=== PATIENT | female | born 1965 | race Caucasian/White ===

== ENCOUNTER 2024-12-08 15:24 | Outpatient (CLI) | payer BC, SELFPAY ==
--- OUTSIDE RECORDS SUMMARY | 2024-12-08 15:28 | XMS_ITS ---
Author Organization [facility] Address [address] [place] [address] Care Team Providers Care Short Goods Drier Name Role Phone Kanika Gonzalez Primary Care Provider [phone] Migration, Provider Unavailable Unavailable REASON FOR VISIT Multum To Medispan Conversion Encounter Medications Medication SIG (Take, Route, Frequency, Duration) Notes Start Date End Date Status Vitamin E 50 MG/ML 1 ML ORALLY ONCE A DAY *Please review and pick correct strength-formulatio n from Medispan options. If intended option is not shown, discontinue and re-order from Quick Search* Active Pravastatin Sodium 40 MG 1 tab(s) orally once a day for 30 days 02/08/2024 Active Vitamin B-12 1000 MCG 1 tab(s) orally once a day Active metFORMIN HCl ER 500 MG TAKE 1 TABLET BY MOUTH EVERY DAY AT DINNER for 90 Days Active Encounters Encounter Location Date Provider Diagnosis [facility] [address] [place] [address] 04/16/2024 Provider Migration Plan Of Treatment No Information Progress Notes * VIVIAN MAHMOODRASHADB:1965 ( 59 yo F)Acc No.[id number]:04/16/2024 Patient: GENET ANDERSON Provider: Stephany hernández Migration :1965 A ge:58 Y S ex:Female Date:04/16/2024 Address:[address], [place] Pcp:Kanika Gonzalez Subjective: * Chief Complaints: * 1 . Multum To Medispan Conversion Encounter. * Medical History: * Medications: T aking Vitamin E 50 MG/ML SOLUTION 1 ML ORALLY ONCE A DAY , Notes to Pharmacist: *Please review and pick correct strength-formulation from Medispan options. If intended option is not shown, discontinue and re-order from Quick Search*, Taking Vitamin B-12 1000 MCG Tablet 1 tab(s) orally once a day , Taking Pravastatin Sodium 40 MG Tablet 1 tab(s) orally once a day , Taking metFORMIN HCl ER 500 MG Tablet Extended Release 24 Hour TAKE 1 TABLET BY MOUTH EVERY DAY AT DINNER Objective: * Vitals: Assessment: Plan: * Treatment: * Billing Information: * Visit Code: * Procedure Codes: * Electronic signature of Sanjiv martin Migration on 12/08/2024 at 03:27 PM CDT Sign off status: Pending * Provider: Stephany hernández Migration Date: 06/16/2023 Generated for Waylon nguyen/Aristides/Rambo on: 12/08/2024 03:27 PM CDT
--- OUTSIDE RECORDS SUMMARY | 2024-12-08 15:28 | XMS_ITS | Clinical Summary ---
Author Organization [facility] Address [address] [place] [address] Care Team Providers Care Environmental Emergencies Planner Name Role Phone Dian Soares MD Primary Care Provide r Te Rosales MD Unavailable [phone] Irina Garrett PT Unavailable Unavaila ble Allergies No known active allergies Medications metFORMIN (FORTAMET) 500 mg 24 hr tablet Take 1 tablet (500 mg total) by mouth daily after dinner Active pravastatin (PRAVACHOL) 40 mg tablet Take 1 tablet (40 mg total) by mouth daily after dinner Active cholecalciferol (VITAMIN D-3) 2000 unit capsule Take 1 capsule (2,000 Units total) by mouth daily Active cyanocobalamin (Vitamin B-12) 1,000 mcg tabletIndications: Prevention of Vitamin B12 Deficiency Take 1 tablet (1,000 mcg total) by mouth daily Active vitamin E 400 unit capsule Take 1 capsule (400 Units total) by mouth daily Active zinc sulfate (ZINCATE) 50 mg zinc (220 mg) capsule Take 1 capsule (220 mg total) by mouth daily Active cetirizine-pseudoe phedrine ER (ZyrTEC-D) 5-120 mg per 12 hr tablet Take 1 tablet by mouth 2 (two) times a day as needed for allergies Active albuterol HFA (PROVENTIL HFA,VENTOLIN HFA,PROAIR HFA) 90 mcg/actuation inhaler Inhale 2 puffs every 6 (six) hours as needed for wheezing Active triamcinolone (NASACORT) 55 mcg nasal inhaler Administer 2 sprays into each nostril daily as needed for rhinitis Active ondansetron ODT (ZOFRAN-ODT) 4 mg disintegrating tabletIndications: Nausea and Vomiting Take 1 tablet (4 mg total) by mouth every 6 (six) hours as needed for nausea or vomiting 20 tablet 4 Active Active Problems Problem Noted Date Diagnosed Date Class 2 obesity with body ma ss index (BMI) of 37.0 to 37.9 in adult 11/14/2023 Cellulitis of left lower leg 11/13/2023 Cellulitis 10/18/2023 Lymphedema due to chronic inflammation Transaminitis 10/18/2023 Allergic rhinitis 10/18/2023 Dyslipidemia 10/18/2023 Cellulitis of left lower extremity 08/05/2023 Encounters Date Type Department Care Team Description 12/06/2024 3:45 PM CDT Therapy [facility] at [address] [address] Irina Garrett, PT Lymphedema (Primary Dx) 11/10/2024 1:30 PM CDT Therapy [facility] at [address] [address] Irina Garrett, PT Lymphedema (Primary Dx) 11/03/2024 1:30 PM CDT Therapy [facility] at [address] [address] Irina Garrett, PT Lymphedema (Primary Dx) 11/01/2024 1:45 PM CDT Therapy [facility] at [address] [address] Irina Garrett, PT Lymphedema (Primary Dx) 10/28/2024 1:45 PM CDT Therapy [facility] at [address] [address] Irina Garrett, PT Lymphedema (Primary Dx) 10/25/2024 11:00 AM CDT Therapy [facility] at [address] [address] Irina Garrett, PT Lymphedema (Primary Dx) 10/21/2024 11:00 AM CDT Therapy [facility] at [address] [address] Irina Garrett, PT Lymphedema (Primary Dx) 10/21/2024 Plan of Care Documentation [facility] at [address] [address] 10/18/2024 12:00 PM CDT Therapy [facility] at [address] [address] Irina Garrett, PT Lymphedema (Primary Dx) 10/14/2024 11:00 AM CDT Therapy [facility] at [address] [address] Irina Garrett, PT Lymphedema (Primary Dx) 10/11/2024 12:00 PM CDT Therapy [facility] at [address] [address] Irina Garrett, PT Lymphedema (Primary Dx) 10/06/2024 3:30 PM CDT Therapy [facility] at [address] [address] Irina Garrett, PT Lymphedema (Primary Dx) 09/30/2024 10:30 AM CDT Therapy [facility] at [address] [address] Irina Garrett, PT Lymphedema (Primary Dx) 09/13/2024 2:30 PM CDT Therapy [facility] at [address] [address] Irina Garrett, PT Lymphedema (Primary Dx) from Last 3 Months Medical History Medical History Date Comments Allergic rhinitis HLD (hyperlipidemia) Chronic acquired lymphedema Social History Tobacco Use Types Packs/Day Years Used Date Smoking Tobacco: Never Smokeless Tobacco: Never Tobacco Cessation:Counseling Given: Not Answered [facility] Utilities Answer Date Recorded In the past 12 months has th e electric, gas, oil, or water company threatened to shut off services in your home? No 11/16/2023 Social Connection and Isolat ion Panel [NHANES] Answer Date Recorded In a typical week, how many times do you talk on the phone with family, friends, or neighbors? More than three times a week 11/16/2023 How often do you get togethe r with friends or relatives? More than three times a week 11/16/2023 How often do you attend chur ch or methodist services? Never 11/16/2023 Do you belong to any clubs o r organizations such as hinduism groups, unions, fraternal or athletic groups, or school groups? No 11/16/2023 How often do you attend meet ings of the clubs or organizations you belong to? Never 11/16/2023 Are you , , di vorced, , never , or living with a partner? 11/16/2023 Overall Financial Resource Strain (CARDIA) Answe r Date Recorded How hard is it for you to pa y for the very basics like food, housing, medical care, and heating? Not hard at all 11/16/2023 PHQ-2 Answer Date Recorded PHQ-2 Total Score (If total score is 3 or more points, staff should administer the PHQ-9) 0 08/06/2023 Hunger Vital Sign Answer Date Recorded Within the past 12 months, y ou worried that your food would run out before you got the money to buy more. Never true 11/16/19 24 Within the past 12 months, t he food you bought just didn't last and you didn't have money to get more. Never true 11/16/2023 PRAPARE - Transportation Answer Date Re corded In the past 12 months, has l ack of transportation kept you from medical appointments or from getting medications? No 10/30 In the past 12 months, has l ack of transportation kept you from meetings, work, or from getting things needed for daily living? No 11/16/2023 Housing Stability Vital Sign Answer Juan e Recorded In the last 12 months, was t here a time when you were not able to pay the mortgage or rent on time? No 08/06/2023 In the last 12 months, how many places have you lived? 1 08/06/2023 In the last 12 months, was t here a time when you did not have a steady place to sleep or slept in a group home (including now)? No 08/06/2023 PHQ-9 Answer Date Recorded PHQ-9 Total Score 0 08/06/2023 Housing Stability Vital Sign Answer Juan e Recorded In the last 12 months, was t here a time when you were not able to pay the mortgage or rent on time? No 11/16/2023 In the past 12 months, how m any times have you moved where you were living? 0 11/16/2023 At any time in the past [address] [facility], were you homeless or living in a group home (including now)? No 11/16/2023 Personal Safety Answer Date Recorded Have you ever been in or are you currently in a harmful physical or emotional relationship or is someone making you feel afraid or unsafe? 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 Gender Identity Not on file Sexual Orientation Not on file Obstetrics History Last Filed Vital Signs Vital Sign Reading Time Taken Comments Blood Pressure 133/84 11/16/2023 8:01 AM CDT Pulse 62 11/16/2023 8:01 AM CDT Temperature 36.6 C (97.9 F) 11/16/2023 8:01 AM CDT Respiratory Rate 18 11/16/2023 8:01 AM CDT Oxygen Saturation 98% 11/16/2023 8:01 AM CDT Inhaled Oxygen Concentration - - Weight 102.8 kg (226 lb 9.6 oz) 024 11:06 PM CDT Height 165.1 cm (5' 5) 11/13/2023 11:0 6 PM CDT Body Mass Index 37.71 11/13/2023 11:06 PM CDT Plan of Treatment Health Maintenance Due Date Last Done Comments Cervical Cancer Screening 1965 Colon Cancer Screening-Colonoscopy 1965 Hepatitis C Screening 1965 Hepatitis B Screening 1981 Regular Well Visit/Exam 18-64 1981 Zoster Vaccine (1 of 2) 2013 DTaP/Tdap/Td Vaccine (1 - Tdap) 10/04/2014 5, 10/02/2014 Pneumococcal vaccine <65 (3 of 3 - PCV20 or PCV21) 03/24/2018 03/24/2013, 03/24/2013 Breast Cancer Screening-Mammogram 03/14/2023 03/14/2022, 08/27/2018, 10/11/2015, Additional history exists Covid-19 Vaccine (2 - 2023-2 5 season) 2024 09/05/2020 Depression Screening 08/04/2024 08/05/2023, 08/05/19 24 Influenza Vaccine (#1) 2025 , 03/25/2022, 05/01/2021, Additional history exists Insurance [facility] [place] [facility] [place] [place] Advance Directives For more information, please contact: [phone] * Full Code (Latest Code Status on File) Date Activated Date Inactivated Comments 11/13/2023 9:01 PM 11/16/2023 4:41 PM * Full Code Date Activated Date Inactivated Comments 10/18/2023 5:23 PM 10/20/2023 7:51 PM * Full Code Date Activated Date Inactivated Comments 08/05/2023 11:09 PM 08/08/2023 9:54 PM Care Teams Environmental Emergencies Planner Relationship Specialty Start Date End Date Dian Soares MD [address] [address] PCP - General 08/11/17 [place] [address] [place] [address] Consulting Physician Infectious Diseases 10/20/23 Irina Garrett PT Physical Therapist Physical Therapy 12/11/23
--- OUTSIDE RECORDS SUMMARY | 2024-12-08 15:28 | XMS_ITS ---
Author Organization [facility] Address [address] [place] [address] Care Team Providers Care Agricultural Plow Operator Name Role Phone Kanika Gonzalez Primary Care Provider REASON FOR VISIT 6 month follow up Encounters Encounter Location Date Provider Diagnosis [facility] - Kanika Gonzalez [address] [place] [address] 08/08/2024 Kanika Gonzalez Plan Of Treatment No Information Progress Notes * LEXIE MAHMOODB:1965 ( 59 yo F)Acc No.[id number]:08/08/2024 Progress Notes Patient: GENET ANDERSON Provider: Solange Gonzalez MD :1965 A ge:59 Y S ex:Female Date:08/08/2024 Address: [address], [place] [facility] Subjective: * Chief Complaints: * 1 . 6 month follow up. * Medical History: Objective: * Vitals: Assessment: Plan: * Treatment: * Billing Information: * Visit Code: * Procedure Codes: * Electronic signature of Shahbaz Gonzalez MD on 12/08/2024 at 03:28 PM CDT Sign off status: Pending * Provider: Solange Gonzalez MD Date: 08/08/2024 Generated for Waylon nguyen/Aristides/eTestefaniitting on: 12/08/2024 03:28 PM CDT
--- OUTSIDE RECORDS SUMMARY | 2024-12-08 15:28 | XMS_ITS | Referral Summary ---
Author Organization [facility] Address [address] [place] [address] Care Team Providers Care Chief Radiologic Technologist Name Role Phone Dian Soares MD Primary Care Provide r Te Rosales MD Unavailable [phone] Irina Garrett PT Unavailable Unavaila ble Encounters Date Type Department Care Team Description 12/06/2024 3:45 PM CDT Therapy [facility] at [address] [address] Irina Garrett, PT Lymphedema (Primary Dx) 11/10/2024 1:30 PM CDT Therapy [facility] at [address] [address] Irina Garrett, PT Lymphedema (Primary Dx) 11/03/2024 1:30 PM CDT Therapy [facility] at [address] [address] Irina Garrett, PT Lymphedema (Primary Dx) 11/01/2024 1:45 PM CDT Therapy [facility] at [address] [address] Irina Garrett, PT Lymphedema (Primary Dx) 10/28/2024 1:45 PM CDT Therapy [facility] at [address] [address] [place], Irina, PT Lymphedema (Primary Dx) 10/25/2024 11:00 AM CDT Therapy [facility] at [address] [address] Irina Garrett, PT Lymphedema (Primary Dx) 10/21/2024 Plan of Care Documentation [facility] at [address] [address] 10/21/2024 11:00 AM CDT Therapy [facility] at [address] [address] Irina Garrett, PT Lymphedema (Primary Dx) 10/18/2024 12:00 PM CDT Therapy [facility] at [address] [address] Irina Garrett, PT Lymphedema (Primary Dx) 10/14/2024 11:00 AM CDT Therapy [facility] at [address] [address] Irina Garrett, PT Lymphedema (Primary Dx) 10/11/2024 12:00 PM CDT Therapy [facility] at [address] [address] Irina Garrett, PT Lymphedema (Primary Dx) 10/06/2024 3:30 PM CDT Therapy [facility] at [address] [address] Irina Garrett, PT Lymphedema (Primary Dx) 09/30/2024 10:30 AM CDT Therapy [facility] at [address] [address] Irina Garrett, PT Lymphedema (Primary Dx) 09/13/2024 2:30 PM CDT Therapy [facility] at [address] [address] Irina Garrett PT Lymphedema (Primary Dx) from Last 3 Months Allergies No known active allergies Medications metFORMIN [...] Cellulitis 10/18/2023 Lymphedema due to chronic inflammation 4 Transaminitis 10/18/2023 Allergic rhinitis 10/18/2023 Dyslipidemia 10/18/2023 Cellulitis of left lower extremity 08/05/2023 Social History Tobacco Use Types Packs/Day Years Used Date Smoking Tobacco: Never Smokeless Tobacco: Never Tobacco Cessation:Counseling Given: Not Answered [facility] Utilities Answer Date Recorded In the past [...] often do you attend chur ch or alevism services? Never 11/16/2023 Do you belong to any clubs o r organizations such as uatsdin groups, unions, fraternal or athletic groups, or [...] place to sleep or slept in a penitentiary (including now)? No 08/06/2023 PHQ-9 Answer Date [...] any time in the past 12 m [facility], were you homeless or living in a penitentiary (including now)? No 11/16/2023 Personal Safety Answer Date Recorded Have you ever been in or are you currently in a harmful physical or emotional relationship or is someone making you feel afraid or unsafe? 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 Gender Identity Not on file Sexual Orientation Not on file Last Filed Vital Signs Vital Sign Reading [...] 11/13/2023 11:06 PM CDT Plan of Treatment Not on file [place] Advance Directives For more information, please contact: [phone] * Full Code (Latest Code Status on File) Date Activated Date Inactivated Comments 11/13/2023 9:01 PM 11/16/2023 4:41 PM * Full Code Date Activated Date Inactivated Comments 10/18/2023 5:23 PM 10/20/2023 7:51 PM * Full Code Date Activated Date Inactivated Comments 08/05/2023 11:09 PM 08/08/2023 9:54 PM Care Teams Chief Radiologic Technologist Relationship Specialty Start Date End Date Dian Soares MD [address] [facility] [address] [place] [address] PCP - General 08/11/17 [place] [address] [place] [address] Consulting Physician Infectious Diseases 10/20/23 Irina Garrett, PT Physical Therapist Physical Therapy 12/11/23
--- OUTSIDE RECORDS SUMMARY | 2024-12-08 15:28 | XMS_ITS | Clinical Summary ---
Author Organization [facility] Address [address] [facility] [place] [address] Care Team Providers Care Animal Care Assistant Name Role Phone Marques Soares MD Primary Care Provider Source Comments [facility],non-owned Affiliates and Associated Physician Practices is amultiple site organization consisting of ambulatory clinics and hospital sitesin [place], [place], [place] and [place]. This disclosure is being madepursuant to the Care Everywhere program and may not contain all information available regarding this patient. Last updated 18.[facility] Allergies No known active allergies Medications * Be aware that medications may not be up to date on this document. Alwaysverify current medications with the patient. Cetirizine-Pseu doephedrine (ZYRTEC-D PO) Active albuterol HFA (PROVENTIL;VENT LORIN;PROAIR) 108 (90 Base) MCG/ACT inhaler Inhale 2 puffs by mouth every 6 hours as needed Active PRAVASTATIN SODIUM PO Active Triamcinolone Acetonide (NASACORT ALLERGY 24HR NA) Active Cetirizine-Pseu doephedrine (ZYRTEC-D PO) Active VITAMIN D PO Active erythromycin (ROMYCIN) 5 MG/GM ophthalmic ointment Apply 1 cm to affected eye every 4 hours for 7 days. 3.5 g 01/07/2020 Active Active Problems Problem Noted Date Diagnosed Date Fatty liver 12/07/2024 Encounters Date Type Department Care Team Description 12/07/2024 10:00 AM CDT Procedure visit [facility] [address] [facility] [place] [address] Unknown, Provider 12/07/2024 Orders Only [facility] [address] [facility], [place] [address] Luis Antonio Kitchen MD Fatty liver 11/30/2024 Travel from Last 3 Months Social History Tobacco Use Types Packs/Day Years Used Date Smoking Tobacco: Never Smokeless Tobacco: Never Comments Unknown Sex and Gender Information Value Date Recorded Sex Assigned at Not on file Legal Sex Female 3:51 PM CDT Gender Identity Not on file Sexual Orientation Not on file Last Filed Vital Signs Vital Sign Reading Time Taken Comments Blood Pressure 118/72 01/07/2020 3:51 PM CDT Pulse 78 01/07/2020 3:51 PM CDT Temperature 36.9 C (98.5 F) 01/07/2020 3:51 PM CDT Respiratory Rate 17 01/07/2020 3:51 PM CDT Oxygen Saturation 98% 01/07/2020 3:51 PM CDT Inhaled Oxygen Concentration - - Weight 103.9 kg (229 lb) 01/07/2020 3:51 PM CDT Height 165.1 cm (5' 5) 01/07/2020 3:51 PM CDT Body Mass Index 38.11 01/07/2020 3:51 PM CDT Plan of Treatment Health Maintenance Due Date Last Done Comments COLON MONITORING 1965 COLONOSCOPY - COLON CA SCREENING 1963 CT COLONOGRAPHY - COLON CA SCREENING 1963 FIT - COLON CA SCREENING 1963 FLEX SIG - COLON CA SCREENING 1965 MAMMOGRAM 1963 HIV SCREENING 1978 HEPATITIS C SCREENING 06/01/1981 DTAP/TDAP/TD VACCINES (1 - Tdap) 1982 PAP SMEAR 1984 PNEUMOCOCCAL VACCINE 50+ (1 of 1 - PCV) 2013 ZOSTER VACCINE (1 of 2) 2013 COVID-19 VACCINE (1 - 2023- season) 2024 DEPRESSION SCREENING 06/01/2024 COLOGUARD (AGES 45-75) - COLON CA SCREENING 06/11/2024 06/11/2021 Colorectal Cancer Screening 06/11/2024 INFLUENZA VACCINE (#1) 2025 , 03/27/2020, 03/30/2019, Additional history exists Respiratory Syncytial Virus (RSV) Vaccine Pt: or over 60 yrs (1 - 1-dose 75+ series) 2038 HEPATITIS B VACCINE Aged Out No longe r eligible based on patient's age to complete this topic HIB VACCINE Aged Out No longer eligi ble based on patient's age to complete this topic HPV VACCINE Aged Out No longer eligi ble based on patient's age to complete this topic MENINGOCOCCAL (Group B) VACCINE SHARED DECISION-MAKING Aged Out No longer eligible based on patient's age to complete this topic MENINGOCOCCAL GROUPS A/C/Y/W VACCINE Aged Out No longer eligible based on patient's age to complete this topic Insurance [facility] Care Teams Animal Care Assistant Relationship Specialty Start Date End Date Marques Soares MD [address] [phone] PCP - General Internal Medicine 12/07/24
--- OUTSIDE RECORDS SUMMARY | 2024-12-08 15:29 | XMS_ITS | Continuity of Care Document ---
Author Organization [facility] Address [address] [place] [address] [address] [place] [address] Phone Care Team Providers Care Senior Accountant Analyst Name Role Phone Jett OD, Rafa Unavailable Unavailable Procedures Procedure Date Eye Exam & Treatment Refraction Advance Directives Directive Yes / No Effective Date File Name No Information Encounters Encounter Description Practice Location Reason(s) For Visit Diagnoses Date Provider Providers Copied on Encounter [facility], [address] [place] [address] [address], [place], [place], [id number], [place] tel:[phone] [facility] No Information [phone] Jett OD Rafa. [address] [facility] , [address], [place], [address], [place]. tel:[phone] Family History Family Member Type Diagnosis Age At Onset No Information Payers Payer name Insurance type Covered republican ID Authoriza tion(s) No Information Social History Type Description Quantity Date Captured Comments Sex Female Smoking Status No Information Chief Complaint And Reason For Visit No Information Reason For Referral Reason For Referral No Information History Of Present Illness Encounter Date Complaint History Of Prese nt Illness No Information Functional Status Date Functional Assessmen t No Information Instructions Date Instruction Additional Infor mation No Information Assessments Type Assessment Date No Information Patient Care Teams Name Effective Dates (start - stop) Status Members No Information
--- OUTSIDE RECORDS SUMMARY | 2024-12-08 15:29 | XMS_ITS | Encounter Summary ---
Author Organization [facility] Address [address] [address] Care Team Providers Care Office Manager Executive Assistant Name Role Phone Marques Soares MD Primary Care Provider Reason for Referral * Radiology Services (Routine) - Open Specialty Diagnoses / Procedures Referred By Contac t Referred To Contact Diagnoses Fatty liver Procedures PROC FIBROSCAN Luis Antonio Kitchen MD [address] [place] [address] [address] [place] [address] Phone: tel: fax: Referral ID Status Reason Start Date Expiration Date Visits Re quested Visits Authorized [id number] Open 12/07/2024 12/07/2025 1 1 Encounter Details Date Type Department Care Team (Late st Contact Info) Description 12/07/2024 Orders Only [facility] [address] [place] [address], [place] [address] Luis Antonio Kitchen MD [address] [place] [address] [address] [place] [address] Fatty liver Social History Tobacco Use Types Packs/Day Years Used Date Smoking Tobacco: Never Smokeless Tobacco: Never Comments Unknown Sex and Gender Information Value Date Recorded Sex Assigned at Not on file Legal Sex Female 3:51 PM CDT Gender Identity Not on file Sexual Orientation Not on file documented as of this encounter Plan of Treatment Scheduled Orders Name Type Priority Associated Diagnoses Orde r Schedule PROC FIBROSCAN Procedures Routine Fatty liver Ordered: 12/07/2024 documented as of this encounter Visit Diagnoses Diagnosis Fatty liver- Primary Other chronic nonalcoholic liver disease documented in this encounter Care Teams Office Manager Executive Assistant Relationship Specialty Start Date End Date Marques Soares MD [address] [address] PCP - General Internal Medicine 12/07/24 documented as of this encounter
--- OUTSIDE RECORDS SUMMARY | 2024-12-08 15:29 | XMS_ITS | Encounter Summary ---
Author Organization [facility] Address [address] [place] [address] Care Team Providers Care Health Coach Name Role Phone Unavailable Primary Care Provider Unavailabl e Encounter Details Date Type Department Care Team (Late st Contact Info) Description 12/08/2024 3:00 PM CDT Office Visit [facility] Oncology and Hematology - [place] [address] [facility] [address] [place] [address] Juan Manuel Cordova MD [address] [facility] [address] [place] [address] Chronic anemia (Primary Dx); Leukopenia, unspecified type Social History Tobacco Use Types Packs/Day Years Used Date Smoking Tobacco: Never Smokeless Tobacco: Never Tobacco Cessation:Counseling Given: Not Answered Alcohol Use Standard Drinks/Week Comments Yes 0 (1 standard drink = 0.6 oz pur e alcohol) occasional Comments Unknown Sex and Gender Information Value Date Recorded Sex Assigned at Not on file Legal Sex Female 1:44 PM CDT Gender Identity Not on file Sexual Orientation Not on file documented as of this encounter Last Filed Vital Signs Vital Sign Reading Time Taken Comments Blood Pressure 131/75 12/08/2024 2:52 PM CDT Pulse 66 12/08/2024 2:52 PM CDT Temperature 36.3 C (97.4 F) 12/08/2024 2:52 PM CDT Respiratory Rate 16 12/08/2024 2:52 PM CDT Oxygen Saturation 97% 12/08/2024 2:52 PM CDT Inhaled Oxygen Concentration - - Weight 109.1 kg (240 lb 9.6 oz) 12/08/2024 2:52 PM CDT Height 165.1 cm (5' 5) 12/08/2024 2:52 PM CDT Body Mass Index 40.04 12/08/2024 2:52 PM CDT documented in this encounter Plan of Treatment Upcoming Encounters Date Type Department Care Team (Late st Contact Info) Description 12/22/2024 4:30 PM CDT Telephone Check Up [facility] Oncology and Hematology [facility] [address] [facility] [address] [place] [phone] Juan Manuel Cordova MD [address] [facility] [address] [place] [address] Scheduled Orders Name Type Priority Associated Diagnoses Orde r Schedule CBC WITH DIFFERENTIAL Lab Stat Chronic anemia Expected: 12/08/2024, Expires: 12/08/2025 TEDDY SCREEN W/REFLEX Lab Routine Leukopenia, unspecified type Expected: 12/08/2024, Expires: 12/08/2025 COMPREHENSIVE METABOLIC PANEL Lab Stat Chronic anemia Expected: 12/08/2024, Expires: 12/08/2025 FLOW CYTOMETRY PANEL Lab Routine Leukopenia, unspecified type Expected: 12/08/2024, Expires: 12/08/2025 IRON, TIBC, AND PERCENT SATURATION Lab Routine Chronic anemia Expected: 12/08/2024, Expires: 12/08/2025 METHYLMALONIC ACID Lab Routine Chronic anemia Expected: 12/08/2024, Expires: 12/08/2025 TRANSFERRIN RECEPTOR TFR SOLUBLE Lab Routine Chronic anemia Expected: 12/08/2024, Expires: 12/08/2025 VITAMIN B12 AND FOLATE Lab Routine Chronic anemia Expected: 12/08/2024, Expires: 12/08/2025 documented as of this encounter Visit Diagnoses Diagnosis Chronic anemia- Primary Anemia, unspecified Leukopenia, unspecified type documented in this encounter
--- OUTSIDE RECORDS SUMMARY | 2024-12-08 15:29 | XMS_ITS | Data Portability ---
Author Organization [place] [facility], Main Office Address [address] [place] [address] Care Team Providers Care Energy Technician Name Role Phone MARIZA SOARES Primary Care Provider MARIZA SOARES Referring Provider [phone] ALTA DESOUZA Computer Numerical Control Operator PAIGE CHAN Spar Machine Operator Assessment Encounter Date Assessment Date Assessment LastModified by Organization Details LastModified Time 07/13/2023 07/13/2023 07/11/2022: TSH/FT4: WN: Lipids: WNL CMP: WNL CBC: WBC 3.4L VIT D 42 01/08/2023: Chol 253, TG 150, LDL 161 ALT 31 07/03/2023: Chol 229, LDLD 135 VIT D 29 Not available 07/13/2023 11:28:38 08/17/2023 08/17/2023 07/11/2022: TSH/FT4: WN: Lipids: WNL CMP: WNL CBC: WBC 3.4L VIT D 42 01/08/2023: Chol 253, TG 150, LDL 161 ALT 31 07/03/2023: Chol 229, LDL 135 VIT D 29 07/11/2022: TSH/FT4: WN: Lipids: WNL CMP: WNL CBC: WBC 3.4L VIT D 42 01/08/2023: Chol 253, TG 150, LDL 161 ALT 31 07/03/2023: Chol 229, LDLD 135 VIT D 29 Not available 08/28/2023 13:46:07 01/11/2024 01/11/202407/11/2022: TSH/FT4: WN: Lipids: WNL CMP: WNL CBC: WBC 3.4L VIT D 42 01/08/2023: Chol 253, TG 150, LDL 161 ALT 31 07/03/2023: Chol 229, LDL 135 VIT D 29 07/11/2022: TSH/FT4: WN: Lipids: WNL CMP: WNL CBC: WBC 3.4L VIT D 42 01/08/2023: Chol 253, TG 150, LDL 161 ALT 31 07/03/2023: Chol 229, LDLD 135 VIT D 29 Not available 01/11/2024 12:35:33 07/25/2024 07/25/2024 07/11/2022: TSH/FT4: WN: Lipids: WNL CMP: WNL CBC: WBC 3.4L VIT D 42 01/08/2023: Chol 253, TG 150, LDL 161 ALT 31 07/03/2023: Chol 229, LDL 135 VIT D 29 07/11/2022: TSH/FT4: WN: Lipids: WNL CMP: WNL CBC: WBC 3.4L VIT D 42 01/08/2023: Chol 253, TG 150, LDL 161 ALT 31 07/03/2023: Chol 229, LDLD 135 VIT D 29 07/18/2024: Bashir [facility].0 [email or web address] Not available 07/24/2024 16:00:56 Plan of Treatment Reminders Order Date Submit Date Provider Last Modified By Organization Details Last Modified Time Details Appointments Any 15 2024 10:45A Solange ramos MD Not available Not available Not available Lab vitamin D, 25-hydrox y, total, serum 2024 025 [facility], [address], [place], [address], 07/25/2024 12:45:20 CMP, serum or plasma 2024 025 [facility], [address], [place], [address], 07/25/2024 12:45:19 CBC w/ auto diff 2024 025 [facility], [address], [place], [address], 07/25/2024 12:45:19 TSH + free T4, serum 2024 025 [facility], [address], [place], [address], 07/25/2024 12:45:22 lipid panel, serum 2024 025 [facility], [address], [place], [address], 07/25/2024 12:45:21 CMP, serum or plasma 2023 024 [email or web address], [address], [place], [address], 07/12/2024 08:56:32 CBC w/ auto diff 2023 024 [email or web address], [address], [place], [address], 07/12/2024 08:56:32 TSH + free T4, serum 2023 024 [email or web address], [address], [place], [address], 07/12/2024 08:56:32 lipid panel, serum 2023 024 [email or web address], [address], [place], [address], 07/12/2024 08:56:32 vitamin D, 25-hydrox y, total, serum 2023 024 [email or web address], [address], [place], [address], 07/12/2024 08:56:32 vitamin D, 25-hydrox y, total, serum 2023 024 [email or web address], [address], [place], [address], 02/15/2024 11:00:11 CMP, serum or plasma 2023 024 [email or web address], [address], [place], [address], 02/15/2024 11:00:11 CBC w/ auto diff 2023 024 [email or web address], [address], [place], [address], 02/15/2024 11:00:11 TSH + free T4, serum 2023 024 [email or web address], [address], [place], [address], 02/15/2024 11:00:11 lipid panel, serum 2023 024 [email or web address], [address], [place], [address], 02/15/2024 11:00:11 vitamin D, 25-hydrox y, total, serum 2023 024 [email or web address], [address], [place], [address], 01/13/2024 09:45:35 CMP, serum or plasma 2023 024 [email or web address], [address], [place], [address], 01/13/2024 09:45:35 CBC w/ auto diff 2023 024 [email or web address] [facility], [address], [place], [address], 01/13/2024 09:45:35 TSH + free T4, serum 2023 024 [place] [id number] [facility], [address], [place], [address], 01/13/2024 09:45:35 lipid panel, serum 2023 024 [email or web address] [id number] [facility], [address], [place], [address], 01/13/2024 09:45:36 Referral hematolog ist referral - Please call patient to schedule an appointme nt. Thank you. 2024 025 geo Cordova MD, [address], [place], [address], 11/03/2024 14:59:47 gastroent erologist referral 2023 024 lena Reid MD, [address], [place], [address], 07/12/2024 08:00:27 gastroent erologist referral 2023 024 lena Reid MD, [address], [place], [address], 02/15/2024 11:00:39 gastroent erologist referral 2023 024 lena Reid MD, [address], [place], [address], 02/08/2024 09:53:36 Procedures None recorded. Surgeries None recorded. Imaging MAMMO, screening , digital, bilateral 2023 024 [facility] [place], [address] [place] [address] , [place], [address], 06/13/2024 13:31:35 DEXA, axial skeleton 2023 024 [facility], [address] [place] [address] [place], [address], 01/18/2024 15:51:11 DEXA, axial skeleton [address], [address] [place] [address] [place], [address], 02/15/2024 11:00:23 DEXA, axial skeleton [address], [address] [place] [address] , [place], [address], 01/25/2024 09:58:43 Medication Orders Airsupra 90 mcg-80 mcg/actua tion HFA aerosol inhaler 2023 024 [id number], [address] [facility], [place], [place], [id number], 07/25/2024 12:24:12 Airsupra 90 mcg-80 mcg/actua tion HFA aerosol inhaler 2023 024 [id number], [address] [facility], [place], [place], [id number], 07/25/2024 12:24:12 Patient TargetsNo targets recorded. Patient Instructions Encounter Date Encounter Id Patient Instructions Last Modified By Organization Details Last Modified Time 07/21/2023 [id number] She will give al l of this some thought [email or web address] Not available 07/21/2023 16:42:56 Reason for Referral Environmental Engineering Technician Referral for Liver enzymes level above reference range Referring Physician: Mariza Soares, Internal Medicine, Encounter Date: 07/13/2023 Environmental Engineering Technician Referral for Liver enzymes level above reference range Referring Physician: Mariza Soares Internal Medicine, Encounter Date: 08/17/2023 Environmental Engineering Technician Referral for Liver enzymes level above reference range Referring Physician: Mariza Soares Internal Medicine, Encounter Date: 01/11/2024 Please call patient to chelsea amin an appointment. Thank you. Referring Physician: Mariza Soares, Internal Medicine, Encounter Date: 07/25/2024 Results Created Date Observation Date Name Description Value Unit Range Abnormal Flag Note LastModifiedBy Organization Detail LastModifiedTime 07/01/19 24 07/01/2023 screnam antonella breas t wally, bilat [facility] [address] [address] Patilavonne t Name: MARIA EUGENIA GARCIA Access ion #: [id number] Sex: F : 1965 3 Dictat ed By: Thelma Reis Attend ing Physic woody: ZOEY OLMSTEAD Orderi Physic woody: ZOEY OLMSTEAD Exam Date: 2023 12:44 PM Exam Name: MG SCRN BREAST WALLY BILAT Admitt ing Diagno sis(es ): SCREEN ING MAMMOG NURY WITH TOMOSY NTHESI S: REASON FOR EXAM: SCREEN ING MAMMOG NURY COMPAR CHRISTOS:1 022; 021 TECHNI QUE: Bilate ral CC and MLO views obtain ed. Images were obtain ed using a Digita l Tomosy nthesi s Unit. Standa rd 2D and 3D Tomosy nthesi s images were review ed. FINDIN GS: BREAST COMPOS ITION: The bilate ral breast s are hetero geneou sly dense, which may obscur e small masses . In the right breast , no asymme trical parenc hymal patter n, jeanette ectura l distor tion, pleomo rphic microc alcifi cation s or masses . In the left breast , no asymme trical parenc hymal patter n, jeanette ectura l distor tion, pleomo rphic microc alcifi cation s or masses . IMPRES MELCHOR: No findin gs of malign tracy. Recomm end annual mammog nury. BIRADS : 2 - Benign Electr onical ly Signed by: Thelma Reis at 2023 16:04: 36 PM Page [address] (Imaging) [address] [place], [address], 07/19/2023 20:44:10 07/01/19 24 07/01/2023 MAMMO , scree antonella, digit al, bilat eral No observ ation record ed. [address] [place], [address], 07/19/2023 20:44:11 07/02/19 24 07/01/2023 MAMMO , scree antonella, digit al, bilat eral No observ ation record ed. [place] [id number] [facility] [address] [place], [address], 07/19/2023 20:44:11 07/02/19 24 US ABD multi ple organ s [facility] [address] [place] [address] [phone] Patien t Name: MARIA EUGENIA GARCIA [facility] ion #: [id number] Sex: F : 1965 1 Dictat ed By: Jose Guadalupe Hinton ms Attend ing Physic woody: ZOEY OLMSTEAD Orderi Physic woody: ZOEY OLMSTEAD Exam Date: 2023 08:13 AM Exam Name: US ABDOME N MULTIP LE ORGANS Admitt ing Diagno sis(es ): INDICA TION: Elevat ed liver enzyme s. TECHNI QUE: Multip le real-t maria sonogr aphic images of the abdome n were obtain ed. COMPAR CHRISTOS: Ultras ound of the abdome n dated 10/03/19 22 FINDIN GS: The liver is echoge sudheer compat ible with steato sis. The liver is enlarg ed measur ing 17.9 cm. No intrah epatic biliar y ductal dilata tion is noted. No hepati c masses were seen. There is normal hepato pedal portal vein color Dopple r flow. The gallbl adder wall measur es 0.3 cm. There are small nonsha dowing echoge sudheer foci adhere nt to the gallbl adder wall compat ible with polyps . The larges t measur es 0.3 cm. The common bile duct measur es 0.6 cm and is normal in size. No perich olecys tic fluid is noted. Negati ve sonogr aphic Chaparro 's sign. The right kidney measur es 9.3cm and is normal in size. The right renal echoge nicity , contou r and cortic al thickn ess are within normal limits . No hydron ephros is or large masses are seen. The left kidney measur es 10.5cm and is normal in size. The left renal echoge nicity , contou r, and cortic al thickn ess are within normal limits . No hydron ephros is or large masses are seen. The spleen measur es 11.4cm , within normal limits . The echoge nicity is within normal limits . The visual ized portio ns of the pancre as are unrema rkable . The visual ized portio ns of the IVC and aorta are grossl y unrema rkable . Page 1 [facility] [address] [address] Patien t Name: MARIA EUGENIA GARCIA Access ion #: [id number] Sex: F : 1965 1 Dictat ed By: Jose Guadalupe Hinton ms Attend ing Physic woody: ERICH MARTINEZ Physic woody: ZOEY OLMSTEAD Exam Date: 2023 08:13 AM Exam Name: US ABDOME N MULTIP LE ORGANS Admitt ing Diagno sis(es ): IMPRES MELCHOR: 1. Hepati c steato sis and hepato megaly . 2. Gallbl adder polyps measur ing 0.3 cm. Electr onical ly Signed by: Jose Guadalupe Hinton ms at 2023 09:44: 08 AM Page [address] (Imaging) [address] [place], [address], 07/19/2023 20:44:12 07/02/19 24 07/02/2023 US, abdom en, compl ete No observ ation record ed. [address] [place], [address], 07/19/2023 20:44:12 07/21/19 24 07/21/2023 CT, sinus es, w/o contr ast No observ ation record ed. BARCODE Not Available 2023 15:40:25 08/05/19 24 08/05/2023 lab* No observ ation record ed. [email or web address] [facility] [address], [place], [address], 03/07/2024 09:52:58 08/05/19 24 08/05/2023 US, duple x, carot id arter y No observ ation record ed. [email or web address] [facility] [address], [place], [address], 01/05/2024 10:03:21 01/18/20 24 DEXA, axial skele ton [facility] [address] [place] [address] Patien t Name: MARIA EUGENIA GARCIA Access ion #: [id number] Sex: F : 1965 2 Dictat ed By: Thelma Reis Attend ing Physic woody: ZOEY OLMSTEAD [facility] Physic woody: ZOEY OLMSTEAD Exam Date: 2023 14:08 PM Exam Name: XR DEXA AXIAL/ HIP/PE LVIS/S PINE Admitt ing Diagno sis(es ): INDICA TION: 58 years old, Female ; screen ing for osteop orosis . ANGELICA ROYAL DEXA SCAN: BONE DENSIT Y REPORT : AP SPINE (L1-L4 ) : T Score: -0.5 LEFT FEMORA L NECK : T Score: -1.1 RT FEMORA L NECK : T Score: -0.7 LEFT HIP TOTAL : T Score: -0.4 RT HIP TOTAL : T Score: 0.0 TOTAL BILAT HIP AVG: T Score: -0.2 10 YEAR FRACTU RE RISK* NOT PROVID ED. IMPRES MELCHOR: 1. Normal bone minera l densit y of the lumbar spine. 2. Osteop enia of the left femora l neck. 3. Normal bone minera l densit y of the right femora l neck. ------ ------ ------ ------ ------ ------ ------ ------ ----- Page 1 [facility] [address] [id number] [phone] Patien t Name: MARIA EUGENIA GARCIA Access ion #: [id number] Sex: F : 1965 2 Dictat ed By: Thelma Reis Attend ing Physic woody: ERICH MARTINEZ [facility] Physic woody: ZOEY OLMSTEAD Exam Date: 2023 14:08 PM Exam Name: XR DEXA AXIAL/ HIP/PE LVIS/S PINE Admitt ing Diagno sis(es ): *FRAX versio n 3.08. Fractu re probab ility calcul ated for an untrea mansi patien t. Fractu re probab ility may be lower if the patien t has receiv ed treatm ent. T-scor e: compar christos by michelle grossman deviat ion (SD) to a young adult popula carmen de leon for sex and ethnic ity (used for postme nopaus al women and men >50 years) and classi fied by WHO criter ia. -1.0: normal <-1.0 to >-2.5: osteop enia -2.5: osteop orosis -2.5 plus fragil ity fractu re: severe osteop orosis Z-scor e: compar ed by SD to an age, sex, and ethnic ity popula tion (used for premen opausa l women, men <50 years, and childr en instea d of T-scor e WHO criter ia 4) <-2.0: below expect ed range/ low bone densit y for age, and a cause should be sought Electr onical ly Signed by: Thelma Reis at 2023 14:49: 46 PM Page 2 INTERFACE [facility] (Imaging) [address] [place], [address], 01/18/2024 15:51:11 01/18/20 24 01/18/2024 DEXA, axial skele ton No observ ation record ed. [email or web address] [facility] [address] [place], [address], 03/10/2024 16:02:29 06/13/19 25 06/13/2024 scree antonella breas t wally, bilat [facility] [address] [place], [place] [id number] [phone] Patien t Name: MARIA EUGENIA GARCIA Access ion #: [id number] Sex: F : 1965 1 Locati on: RAD Attend ing Physic woody: ZOEY OLMSTEAD Orderi Physic woody: ZOEY OLMSTEAD Exam Date: 025 11:09 AM Exam Name: MG QUINN BREAST WALLY BILAT Admitt ing Diagno sis(es ): MAMMOG MARBELLA REPORT - FINAL EXAM: MG [place] BREAST WALLY BILAT HISTOR Y: SCREEN ING MAMMOG NURY 59-yea r-old female with no curren t breast compla ints. COMPAR CHRISTOS: 2023, 2021 TECHNI QUE: Bilate ral CC and MLO views of the breast s were perfor med. Digita l Mammog marbella images were obtain ed. CAD (compu ter assist ed detect ion) was utiliz ed. 3D Digita l breast tomosy nthesi s was perfor med and used in the interp retati on of images . FINDIN GS: The breast s are extrem israel dense, which lowers the sensit ivity of mammog marbella. No new masses , develo ping asymme tries, suspic ious calcif icatio ns, or Page 1 of 2 [facility] Jerrell beckman Name: MARIA EUGENIA GARCIA Access ion #: [id number] Sex: F : 1965 1 Exam Date: 025 11:09 AM Exam Name: MG SCRN BREAST WALLY BILAT Admitt ing Diagno sis(es ): jeanette ectura l distor tion are seen. IMPRES MELCHOR: BIRADS 1: Assess ment comple te. Negati ve. Recomm end annual screen ing mammog marbella. Accord ing to the [employer], yearly mammog bernadine are recomm ended starti ng at age 40 and contin uing as long as the woman is in good health . Clinic al Breast Exam should be part of the period ic health exam-a bout every 3 years for women in their 20s and 30s and every year for women 40 and over. Breast self-e xam is an option for women in their 20s. Any breast change noted on the breast self-e xam she would be report ed prompt ly to the [facility]. A negati ve mammog marbella report should not discou rage follow -up or biopsy of a clinic ally signif icant findin g and/or abnorm ality. Dense breast tissue may obscur e small neopla sms. This jerrell beckman has been entere d into a mammog marbella remind er system with a target date for her next mammog nury. Create d and electr onical ly signed by: Herber ro MD Signed Date: 12:26 PM (CT) Dictat ed by: Herber ro MD DD: 12:26 PM (CT) DT: 12:26 PM (CT) Page 2 of 2 INTERFACE [facility] (Imaging) [address] [facility], [place], [address], 06/13/2024 13:29:07 06/13/19 25 06/13/2024 MAMMO , scree antonella, digit al, bilat eral No observ ation record ed. [facility] [address] [facility], [place], [address], 06/13/2024 13:31:35 11/03/19 25 11/02/2024 US, abdom en, limit ed [facility] [address] [place] [address] Patien t Name: MARIA EUGENIA GARCIA Access ion #: [id number] Sex: F : 1965 8 Dictat ed By: CHER MELGAR Attend ing Physic woody: ERICH MARTINEZ [facility] Physic woody: ZOEY OLMSTEAD Exam Date: 2024 09:34 AM Exam Name: US ABDOME N SINGLE ORGAN Admitt ing Diagno sis(es ): Access ion: [id number] Examin ation: US ABDOME N SINGLE ORGAN CLINIC AL INDICA TION: Hepato megaly . COMPAR CHRISTOS: None. TECHNI QUE: Using real-t maria ultras onic imagin g and color Dopple r the abdome n was examin ed from the xiphoi d to below the umbili cus. FINDIN GS: The liver is normal in size and echoge sudheer in appear ance. It measur es 17.3 cm. Main portal vein demons trates hepato petal flow. Common bile duct is normal in calibe r, 5.3 mm. Gallbl adder is disten ded with no radio opaque calcul us within . Multip le echoge sudheer polyps noted larges t 5.3 mm. No sonogr aphic Chaparro `s sign was elicit ed. Gallbl adder wall thickn ess is within normal limits , 2.4 mm. Pancre as is normal in appear ance. Tail not visual ized. There is no hydron ephros is and no renal calcul i are identi fied. Right kidney measur es 10.6 cm. IMPRES MELCHOR: Page 1 [facility] [address] [facility] [place] [address] Patien t Name: MARIA EUGENIA GARCIA Access ion #: [id number] Sex: F : 1965 8 Dictat ed By: CHER MELGAR Attend ing Physic woody: ZOEY OLMSTEAD Physic woody: ZOEY OLMSTEAD Exam Date: 2024 09:34 AM Exam Name: US ABDOME N SINGLE ORGAN Admitt ing Diagno sis(es ): 1. Grade 1 fatty infilt ration of liver. 2. No right renal calcul us or hydron ephros is. 3. No cholel ithias is or cholec ystiti s. Calcif ied polyps , annual follow up with ultras ound is recomm ended. Electr onical ly Signed 11/03/19 14:01 RAMÓN Dawn onical ly Signed by: CHER MELGAR at 2024 14:01: 00 PM Page 2 INTERFACE [facility] (Imaging) [address] [place], [address], 11/02/2024 15:02:33 11/03/19 25 11/02/2024 US, gallb ladde r No observ ation record ed. [facility] [address] [place], [address], 11/02/2024 16:21:28 Result Notes Documentation Provider Name and Address Organization Details Recorded Time Dexa, Axial Skeleton : [facility] [address] [place] [address] Patient Name: MARIA EUGENIA GARCIA Sex: F : 1965 Dictated By: Thelma Reis Attending Physician: MARIZA SOARES Ordering Physician: MARIZA SOARES Exam Date: 01/18/2024 14:08 PM Exam Name: XR DEXA AXIAL/HIP/PELVIS/SPINE Admitting Diagnosis(es): INDICATION: 58 years old, Female; screening for osteoporosis. POSTMENOPAUSAL. DEXA SCAN: BONE DENSITY REPORT: AP SPINE (L1-L4) : T Score: -0.5 LEFT FEMORAL NECK : T Score: -1.1 RT FEMORAL NECK : T Score: -0.7 LEFT HIP TOTAL : T Score: -0.4 RT HIP TOTAL : T Score: 0.0 TOTAL BILAT HIP AVG: T Score: -0.2 10 YEAR FRACTURE RISK* NOT PROVIDED. IMPRESSION: 1. Normal bone mineral density of the lumbar spine. 2. Osteopenia of the left femoral neck. 3. Normal bone mineral density of the right femoral neck. --- Page 1 [place] [address] Patient Name: MARIA EUGENIA GARCIA Sex: F : 1965 Dictated By: Thelma Reis Attending Physician: YONAS DAWKINS Ordering Physician: MARIZA SOARES Exam Date: 01/18/2024 14:08 PM Exam Name: XR DEXA AXIAL/HIP/PELVIS/SPINE Admitting Diagnosis(es): *FRAX version 3.08. Fracture probability calculated for an untreated patient. Fracture probability may be lower if the patient has received treatment. T-score: comparison by standard deviation (SD) to a young adult population, matched for sex and ethnicity (used for postmenopausal women and men >50 years) and classified by WHO criteria. -1.0: normal <-1.0 to >-2.5: osteopenia -2.5: osteoporosis -2.5 plus fragility fracture: severe osteoporosis Z-score: compared by SD to an age, sex, and ethnicity population (used for premenopausal women, men <50 years, and children instead of T-score WHO criteria 4) <-2.0: below expected range/low bone density for age, and a cause should be sought Page 2 Not Available [facility] 01/18/2024 15:51:11 Problems Name Problem SNOMED Code Status Onset Date Resolution Date Notes Provider Name and Address Organization Details Recorded Time Upper respirator y infection 92358890 Active 2022 Not Available [facility] 3 17:31:17 Otalgia of left ear 1205933722 Active 2022 Darby herrera, [employer] 3 14:35:20 Asthma 475211144 Active 2022 Mariza lewis MD [address], [facility] [address], [place], [address] , [employer] 3 18:11:46 Leukopenia 43844946 Active 2022 Mariza lewis MD [address], [facility] [address], [place], [address] , [employer] 3 18:11:57 Essential hypertensi on 52119288 Active 2022 Mariza lewis MD [address], [address], [place], [address] , [employer] 3 18:12:05 Vitamin D deficiency 33672281 Active 2022 Mariza lewis MD [address], [address], [place], [address] , [employer] 3 18:12:12 Polyp of gallbladde r 167612332 Active 2022 Mariza lewis MD [address], [address], [place], [address] , [place] [facility] 3 18:12:24 Dependent edema 382938283 Active 2022 Mariza lewis MD [address], [address], [place], [address] , [place] [facility] 3 18:12:49 Liver enzymes level above reference range 991980023 Active 2022 Mariza lewis MD [address], [address], [place], [address] , [place] [facility] 3 18:13:50 Impaired fasting glycemia 788201991 Active 2022 Kanika Gonzalez MD [address], [address], [place], [address] , [place] [facility] 3 12:20:02 Congestion of nasal sinus 80929679 Active 2023 Heaven Joyner RN [facility], [place] [facility] 4 11:02:05 Chronic maxillary sinusitis 29340014 Active 2023 Alta Landa MD [address], [address], [place], [address] , [place] [facility] 4 16:42:20 Deviated nasal septum 929017713 Active 2023 Alta Landa MD [address], [address], [place], [address] , [place] [facility] 4 16:42:27 Hypertroph y of nasal turbinates 24904917 Active 2023 Alta Landa MD [address] [address], [address], [place], [address] , [place] [facility] 4 16:42:33 Cellulitis of lower limb 717590836 Active 2023 Mariza lewis MD [address], [address], [place], [address] , [facility] [employer] [facility] 4 11:28:57 Leukocytos is 791512701 Active 2024 SONDRA Chino null, [facility] [employer] [facility] 5 13:14:16 Hepatomega ly 13153612 Active 2024 SONDRA Chino null, [facility] [employer] [facility] 5 12:40:51 Edema of lower extremity 280372835 Active 2021 Not Available [facility] 3 17:31:17 Neutropeni a 116145129 Active 2021 Not Available [facility] 3 17:31:17 Abdominal pain 85873054 Active 2021 Not Available [facility] 3 17:31:17 Eruption 561951746 Active Not Available [facility] 3 17:31:17 Puncture wound - injury 808924391 Active Not Available [facility] 3 17:31:17 Pain of bilateral knee joints 4379545973815 04 Active 2021 Not Available [facility] 3 17:31:17 Hyperlipid emia 70442869 Active 2021 Not Available [facility] 3 17:31:17 Problem Notes None recorded. Procedures Surgical History Date Name Laterality Status Provider Name and Address Organization Details Recorded Time colposcopy completed Daina Wolfe MA [facility] [employer] [facility] 01/11/2024 11:49:57 Imaging Results None recorded. Procedure Notes None recorded. Medical Equipment None Reported. Allergies No known drug allergies Medications Name Sig Start Date Stop Date Status Note LastModified by Organization Details LastModified Time wal-zyr d tablets TAKE 1 TABLET TWICE DAILY BY MOUTH NEEDED. active Not Available Not Available No t Available allergy rel (cetirizin e)120mg 12h t TAKE 1 TABLET BY MOUTH TWICE DAILY active Not Available Not Available No t Available furosemide 40 mg tablet Take 1 tablet every day by oral route as needed for 5 days. 07/16 completed Not Available Not Available Not Available prednisone 10 mg tablet Take by oral route. active Not Available Not Available No t Available doxycyclin e hyclate 100 mg capsule 01/10 completed Not Available Not Available Not Available Pneumovax- 23 25 mcg/0.5 mL injection solution active Not Available Not Available Not Available azithromyc in 250 mg tablet TAKE 2 TABLETS BY MOUTH FOR 1 DAY THEN TAKE 1 TABLET BY MOUTH DAILY FOR 4 DAYS 07/16 completed Not Available Not Available Not Available pravastati n 40 mg tablet TAKE 1 TABLET BY MOUTH EVERY DAY 2024 active Not Available Not Available Not Avai lable nystatin 100,000 unit/gram topical ointment APPLY TO THE AFFECTED AREA(S) BY TOPICAL ROUTE 2 TIMES PER DAY 01/04 completed Not Available Not Available Not Available cephalexin 250 mg tablet TAKE 1 TABLET BY MOUTH EVERY 6 HOURS FOR 14 DAYS 01/10 completed Not Available Not Available Not Available prednisone 5 mg tablet 04/15 completed Not Available Not Available Not Available amoxicilli n 875 mg tablet TK 1 T PO Q 12 H FOR 10 DAYS 07/05 completed Not Available Not Available Not Available potassium chloride ER 20 mEq tablet,ext ended release(pa rt/cryst) Take 1 tablet every day by oral route. 07/16 completed Not Available Not Available Not Available linezolid 600 mg tablet 01/10 completed Not Available Not Available Not Available dexamethas one 1 mg tablet take dexa tablet at 10 pm night before 8 am cortisol active Not Available Not Available No t Available benzonatat e 100 mg capsule TK 1 C PO Q 8 H PRN 07/30 completed Not Available Not Available Not Available cephalexin 500 mg capsule 01/10 completed Not Available Not Available Not Available erythromyc in 5 mg/gram (0.5 %) eye ointment APPLY 1 CM TO AFFECTED EYE EVERY 4 HOURS 2020 active Not Available Not Available Not Avai lable oseltamivi r 75 mg capsule TK 1 C PO Q 12 H FOR 5 DAYS 07/30 completed Not Available Not Available Not Available polymyxin B sulfate 10,000 unit-trime thoprim 1 mg/mL eye drops INSTILL 2 DROPS BY OPTHALMI C ROUTE Q 4 H FOR 7 DAYS 07/05 completed Not Available Not Available Not Available cefuroxime axetil 500 mg tablet TAKE 1 TABLET BY MOUTH TWICE DAILY UNTIL GONE 07/25 completed Not Available Not Available Not Available methylpred nisolone 4 mg tablets in a dose pack FOLLOW PACKAGE DIRECTIO NS 07/13 completed Not Available Not Available Not Available albuterol sulfate HFA 90 mcg/actuat ion aerosol inhaler INHALE 2 PUFFS INTO LUNGS EVERY 4 HOURS NEEDED active Not Available Not Available No t Available Vitamin D2 1,250 mcg (50,000 unit) capsule Take 1 capsule every week by oral route for 60 days. 01/14 completed Not Available Not Available Not Available ondansetro n 4 mg disintegra ting tablet DISSOLVE ONE TABLET BY MOUTH EVERY 6 HOURS NEEDED FOR NAUSEA OR VOMITING 01/10 completed Not Available Not Available Not Available cefdinir 300 mg capsule 01/10 completed Not Available Not Available Not Available fluticason e propionate 50 mcg/actuat ion nasal spray,susp ension 04/30 completed Not Available Not Available Not Available metformin ER 500 mg tablet,ext ended release 24 hr TAKE 1 TABLET BY MOUTH EVERY DAY AT DINNER active Not Available Not Available No t Available vitamin E 268 mg (400 unit) capsule Take 1 capsule every day by oral route. 07/16 completed Not Available Not Available Not Available progestero ne micronized 100 mg capsule TAKE 1 CAPSULE EVERY DAY IN THE MORNING . 07/16 completed Not Available Not Available Not Available amoxicilli n 875 mg-potassi um clavulanat e 125 mg tablet TAKE 1 TABLET BY MOUTH EVERY 12 HOURS FOR 14 DAYS 01/14 completed Not Available Not Available Not Available amoxicilli n 500 mg-potassi um clavulanat e 125 mg tablet 07/16 completed Not Available Not Available Not Available neomycin 3.5 mg/g-polym yxin B 10,000 unit/g-dex ameth 0.1 % eye oint 09/18 completed Not Available Not Available Not Available Premarin 0.625 mg/gram vaginal cream Insert 0.5 applicat orsful 3 times a week by vaginal route. 10/25 completed Not Available Not Available Not Available ciprofloxa brayan 0.3 %-dexameth asone 0.1 % ear drops,susp ension SHAKE LIQUID AND INSTILL 4 DROPS TO AFFECTED EAR TWICE DAILY FOR 7 DAYS 01/14 completed Not Available Not Available Not Available nitrofuran toin monohydrat e/macrocry stals 100 mg capsule TAKE 1 CAPSULE BY MOUTH EVERY 12 HOURS FOR 5 DAYS 07/08 completed Not Available Not Available Not Available Clobex 0.05 % topical spray 01/04 completed Not Available Not Available Not Available thyroid thyroid support from endo 01/10 completed Not Available Not Available Not Available Vitamin C TK 1T PO QD 07/16 completed Not Available Not Available Not Available zinc TK 1T PO QD 07/16 completed Not Available Not Available Not Available Vitamin D3 2,000 units daily 07/16 completed Not Available Not Available Not Available multivitam in 1 tablet daily 07/08 completed Not Available Not Available Not Available Mucinex 07/30 completed Not Available Not Available Not Available Chromemate (chromium) TK 1T PO QD - 1,000 UNITS DAILY 07/08 completed Not Available Not Available Not Available Pataday 0.2 % eye drops active Not Available Not Available Not Available clobetasol -emollient 0.05 % topical foam PRN 10/03 completed Not Available Not Available Not Available Allergy Relief-D (cetirizin e) 5 mg-120 mg tablet,ext ended release TAKE 1 TABLET TWICE DAILY BY MOUTH NEEDED. 07/25 completed Not Available Not Available Not Available Fluvirin 8376-4800 45 mcg (15 mcg x 3)/0.5 mL intramuscu lar suspension active Not Available Not Available N ot Available potassium chloride ER 20 mEq tablet,ext ended release Take 1 tablet every day by oral route for 5 days. 01/10 completed NEEDED Not Available Not Available Not Available Nasacort 55 mcg nasal spray aerosol Take by nasal route. 2024 active Not Available Not Available Not Avai lable Fluvirin 7809-5285 45 mcg (15 mcg x 3)/0.5 mL intramuscu lar suspension active Not Available Not Available N ot Available Fluvirin 45 mcg (15 mcg x 3)/0.5 mL intramuscu lar suspension ADM 0.5ML IM UTD 04/15 completed Not Available Not Available Not Available Fluvirin 9862-5275 45 mcg (15 mcg x 3)/0.5 mL intramuscu lar suspension active Not Available Not Available N ot Available Fluzone Quad (PF ) 60 mcg(15 mcgx4)/0.5 mL intramuscu lar syringe active Not Available Not Available Not Available Flucelvax Quad (PF) 60 mcg (15 mcg x 4)/0.5 mL IM syringe ADM 0.5ML IM UTD 05/14 completed Not Available Not Available Not Available Airsupra 90 mcg-80 mcg/actuat ion HFA aerosol inhaler Inhale 2 inhalati ons 4 times a day by inhalati on route as needed for 90 days. 07/25 completed Not Available Not Available Not Available Vitals Date Recorded Body height Body mass index (BMI) Body weight Body temperature Heart rate Systolic And Diastolic Provider Name and Address Organization Details Last Updated DateTime 4 162.56 cm 40.3 kg/m2 479699. 21 g 97.4 [degF] 84 /min 120/74 mm[Hg] SONDRA Chino [facility] [employer] [facility] 4 11:15:22 Date Recorded Body height Body mass index (BMI) Body weight Body temperature Provider Name and Address Organization Details Last Updated DateTime 07/21/2023 162.56 cm 40.8 kg/m2 307674.55 g 97.7 [degF] Dee Singh RN [facility] [employer] [facility] 07/21/2023 16:08:55 Date Recorded Body height Body mass index (BMI) Body weight Body temperature Heart rate Systolic And Diastolic Provider Name and Address Organization Details Last Updated DateTime 5 162.56 cm 40 kg/m2 094263. 02 g 97.3 [degF] 78 /min 132/80 mm[Hg] SONDRA Chino [facility] [employer] [facility] 5 12:28:41 Date Recorded Body height Body mass index (BMI) Body weight Oxygen saturation Oxygen saturation in Arterial blood by Pulse oximetry Heart rate Systolic And Diastolic Provider Name and Address Organization Details Last Updated DateTime 4 162.56 cm 39.8 kg/m2 029905. 43 g 97 % 97 % 93 /min 138/90 mm[Hg] SONDRA Ladd [employer] 4 11:02:46 Date Recorded Body height Body mass index (BMI) Body weight Body temperature Heart rate Oxygen saturation Oxygen saturation in Arterial blood by Pulse oximetry Systolic And Diastolic Provider Name and Address Organization Details Last Updated DateTime 4 162.56 cm 38.4 kg/m2 624069. 69 g 98 [degF] 75 /min 96 % 96 % 130/76 mm[Hg] Daina Wolfe MA [employer] 4 11:45:48 Social History Question Answer Notes LastModified by Organizat ion Details LastModified Time Tobacco Smoking Status Never Smoker Not Available [facility] 07/30/2022 04:41:28 Do You Have An Advance Directive? No [id number] Information not available 07/30/2022 What Is Your Level Of Caffeine Consumption? Moderate [id number] Information not available 07/30/2022 How Much Tobacco Do You Chew? None [id number] Information not available 07/30/2022 In The 14 Days Before Symptom Onset, Have You Had Close Contact With A Laboratory-confir med COVID-19 While That Case Was Ill? No [id number] Information not available 07/30/2022 In The 14 Days Before Symptom Onset, Have You Had Close Contact With A Person Who Is Under Investigation For COVID-19 While That Person Was Ill? No [id number] Information not available 07/30/2022 What Type Of Diet Are You Following? REGULAR [id number] Information not available 07/30/2022 Which Illicit Or Recreational Drugs Have You Used? None [id number] Information not available 07/30/2022 What Is The Highest Grade Or Level Of School You Have Completed Or The Highest Degree You Have Received? [id number] Information not available 01/14/2023 Have There Been Any Changes To Your Family Or Social Situation? No [id number] Information not available 07/30/2022 What Is The Fluoride Status Of Your Home? Unknown Information not available 01/14/2023 Are There Any Guns Present In Your Home? Yes [id number].[id number] Information not available 07/30/2022 Do You Use Insect Repellent Routinely? No Information not available 01/14/2023 Where Do You Live? Located within [facility] Information not available 01/14/2023 Do You Have A Medical Power Of Hand Expansion Envelope Maker? No [id number] Information not available 07/30/2022 What Was The Date Of Your Most Recent Tobacco Screening? 07/25/2024 [email or web address] Information not available 07/25/2024 Do You Have Any Pets? No Information not available 01/14/2023 What Is Your Relationship Status? MIGRATION.[id number] Information not available 07/30/2022 Do You Use Your Seat Belt Or Car Seat Routinely? Yes Information not available 01/11/2024 Do You Have Smoke And Carbon Monoxide Detectors In Your Home? Yes Information not available 01/14/2023 Are You Passively Exposed To Smoke? No Information no t available 01/14/2023 Are There Any Smokers In Your House? No Information not available 01/14/2023 How Much Tobacco Do You Smoke? No [id number] Information not available 07/30/2022 Do You Use Sunscreen Routinely? Yes [id number].[id number] Information not available 07/30/2022 How Many Years Have You Smoked Tobacco? 0 MIGRATION.[id number] Information not available 07/30/2022 Have You Recently Traveled Abroad? No MIGRATION.310324 [id number] Information not available 07/30/2022 Do You Have Any Dietary Restrictions? No MIGRATION.[id number] 7924 Information not available 07/30/2022 Sex: Female Functional Status Question Answer Note LastModified by Organizat ion Details LastModified Time Do you use any illicit or recreational drugs? No [id number].[id number] Information not available 07/30/2022 Do you or have you ever used any other forms of tobacco or nicotine? No MIGRATION.[id number] 026 Information not available 07/30/2022 What is your level of alcohol consumption? Occasional MIGRATION.[id number] 026 Information not available 07/30/2022 Are you currently employed? Yes Information not available 01/14/2023 What is your occupation? Self employed Information not available 01/11/2024 What is your exercise level? Moderate [id number].[id number] Information not available 07/30/2022 Mental Status Question Answer Note LastModified by Organization D etails LastModified Time Do you feel stressed (tense, restless, nervous, or anxious, or unable to sleep at night)? [id number] Information not available 01/11/2024 Family History Relationship Description Onset Age of this Age Resolved Age Notes LastModified by Organization Details LastModified Time Father Chronic obstructive pulmonary disease [id number] Not available 07/30/2022 04:43:55 Father History of emphysema [id number].804 [id number] Not available 07/30/2022 04:43:55 Father Asbestosis MIGRATION.212 [id number] Not available 07/30/2022 04:43:55 Father Malignant tumor of pharynx MIGRATION.[id number] Not available 07/30/2022 04:43:55 Mother Hypercholest erolemia MIGRATION.[id number] Not available 07/30/2022 04:43:55 Mother Hypertensive disorder MIGRATION.153 [id number] Not available 07/30/2022 04:43:55 Mother Sinusitis [email or web address] Not availabl e 07/21/2023 16:06:12 Notes:HALF BROTHER HAD SINUS SURGERY (40 YRS AGO), GRANDMOTHER HAD HAYFEVER Medical History Condition Response NERVE DISEASE N BLINDNESS N RHEUMATIC FEVER N KIDNEY STONES N BLADDER PROBLEMS N MRSA N CARPAL TUNNEL SYNDROME N OTHER # 1 N POLIO N LUNG DISEASE/DISORDER N HISTORY OF DRUG ABUSE N COPD N RADIATION / CHEMOTHERAPY N Other # 2 N SPORTS INJURY N ANKLE PAIN N BLOOD DISEASES N SURGERY N EAR OR HEARING PROBLEMS N MUMPS N SCHIZOPHRENIA N SHINGLES N BOWEL PROBLEMS N SHOULDER PAIN N DEPRESSION (INCLUDING POST ) N STROKE/TIA N ULCERS N KNEE PAIN N BENIGN PROSTATIC HYPERPLASIA N MEASLES N MYOCARDIAL INFARCTION N OBESITY N GERD/NAUSEA N ANEURYSM N URINARY/BLADDER/KIDNEY PROBLEMS N CORONARY ARTERY DISEASE (CAD) N ADDICTION CONCERNS N ENDOMETRIOSIS N Impotence N USE OF BLOOD THINNERS N SKIN PROBLEMS N EMPHYSEMA N GASTROINTESTINAL DISORDER N PERIPHERAL VASCULAR DISEASE N MUSCLE,JOINT OR BONE PROBLEMS N DVT N STOMACH ULCERS N GASTROINTESTINAL BLEEDING N BLOOD CLOTS N ASTHMA Y CATARACTS N USE OF NSAIDS Y CONCUSSION OR SPINAL TRAUMA N ERECTILE DYSFUNCTION N VARICOSITIES N GI PROBLEMS N Low Testosterone N NEUROPATHY N INFERTILITY N AIDS/HIV N FRACTURES N CHEMOTHERAPY / RADIATION N LIVER DISEASE N MALE HYPOGONADISM N ELBOW PAIN N HYPERTENSION N Deficiency Y TOURETTE'S N ANXIETY DISORDER N Metal allergy N BLOOD TRANSFUSION N ANEMIA/BLOOD DISORDER N CHRONIC EAR INFECTIONS N BIPOLAR DISORDER N BRONCHITIS N OSTEOARTHRITIS N TUBERCULOSIS N GLAUCOMA N FOOT PROBLEM N HEART VALVE DISORDERS N DIVERTICULITIS N CHICKENPOX N SLEEP APNEA N SOFT TISSUE INJURY N ALLERGIES/HAYFEVER N INFECTIOUS DISEASE N HEART ARRHYTHMIA N PROSTATE N INSOMNIA N RHEUMATOID ARTHRITIS N HIGH CHOLESTEROL / HYPERLIPIDEMIA N EYE PROBLEMS N HYPERTHYROIDISM N NEUROLOGICAL PROBLEMS N EDEMA N CHRONIC PAIN SYNDROME N HYPOTHYROIDISM N CAROTID BLOCKAGE N CONSTIPATION N BACK / NECK PROBLEMS N HAVE YOU BEEN HOSPITALIZED OR SEEN IN [facility] IN THE PAST YEAR ? N ATHEROSCLEROSIS N BURSITIS N BREAST PROBLEMS N HERNIATED DISC N DIALYSIS N ECZEMA N FIBROMYALGIA N OSTEOPOROSIS N ARTHRITIS N NO SIGNIFICANT PAST MEDICAL HISTORY N PERIPHERAL NEUROPATHY N APPENDICITIS N DIABETES, TYPE N BAD TEETH N ENT N HEARTBURN / REFLUX N AUTISM SPECTRUM DISORDER (ASD) N HEPATITIS / LIVER DISEASE N GOUT N SLEEP DISORDER N ALZHEIMER'S DISEASE N Brain Problems N HERPES N DEMENTIA N HEADACHES/MIGRAINES N SEIZURES/EPILEPSY N VASCULAR DISEASE N PACEMAKER N Blood Disorder N HIP PAIN N DIZZINESS N HEAD TRAUMA OR INJURY N HEART DISEASE/HEART PROBLEMS N KIDNEY DISEASE N MULTIPLE SCLEROSIS N CARDIAC ARRHYTHMIA N CANCER: SPECIFY N ANESTHESIA COMPLICATIONS N ATRIAL FIBRILLATION N Gall Stones N PULMONARY EMBOLISM N AUTOIMMUNE DISEASE N Gynecological History Statement/Question Response How many live births 0 Date of Last Mammogram Date of Last Mammogram Date of LMP Most Recent Bone Density Date of Last Pap Current Control Method Menopause Obstetrics History GPAL:G 1 P 0 0 1 0 Type Value Multiple Births 0 Full Term 0 Induced 0 Spontaneous 1 Premature 0 Living 0 Ectopics 0 Total 1 Immunizations Vaccine Type Date Status Note Provider Nam e and Address Organization Details Recorded Time Influenza, split virus, quadrivalent, preservative 1 completed Not Available [facility] 10/14/2022 19:28:28 SARS-COV-2 (COVID-19) vaccine, UNSPECIFIED 1 completed Not Available [facility] 10/14/2022 19:28:28 Influenza, split virus, quadrivalent, preservative 0 completed Not Available [facility] 10/14/2022 19:28:28 Influenza, split virus, quadrivalent, preservative 9 completed Not Available [facility] 10/14/2022 19:28:28 Pneumococcal conjugate PCV 13 3 completed Not Available [facility] 10/14/2022 19:28:28 Influenza, high-dose, trivalent, PF 3 completed Not Available [facility] 10/14/2022 19:28:28 Influenza, split virus, quadrivalent, preservative 8 completed Not Available [facility] 10/14/2022 19:28:28 influenza, unspecified formulation 7 completed Not Available [facility] 10/14/2022 19:28:28 tetanus toxoid, adsorbed 5 completed Not Available [facility] 10/14/2022 19:28:28 tetanus toxoid, adsorbed 5 completed Not Available [facility] 10/14/2022 19:28:28 Past Encounters Encounter ID Performer Location Encounter Start Date Encounter Closed Date Diagnosis/Indication Diagnosis SNOMED-CT Code Diagnosis ICD10 Code Diagnosis Note [id number] Mariza lewis MD [facility] [place] [address] [place] [address] [place] [address] 09/10/2020 00:00:00 09/16/2020 13:02:51 [id number] Jose Luis vargas MD [facility] [place] [address] [place] [address], [address] [address] 10/09/2020 00:00:00 10/09/2020 15:58:00 [id number] Mariza lewis MD [facility] [place] [address] [place] [address] [place] [address] 01/14/2021 00:00:00 01/14/2021 14:33:47 [id number] Mariza lewis MD [facility] [place] [address] [place] [address] [place] [address] 07/08/2021 00:00:00 08/15/2021 17:57:37 [id number] Phil Canada MD [facility] [place] [address] [place] [address] 08/19/2021 00:00:00 08/19/2021 16:19:07 [id number] Mariza lewis MD [facility] [place] [address] [place] [address] 09/25/2021 00:00:00 09/25/2021 17:51:29 [id number] Jose Luis vargas MD [facility] Surgery [address] [address] 10/03/2021 00:00:00 10/03/2021 14:15:58 [id number] Kanika Gonzalez MD [facility] [place] [address] [place] [address] 10/25/2021 00:00:00 10/25/2021 12:03:15 [id number] Mariza lewis MD [facility] [place] [address] [facility] y , [place] [address] 01/15/2022 00:00:00 01/15/2022 15:57:26 [id number] Kanika Gonzalez MD [facility] [place] [address] [place] [address] 01/28/2022 00:00:00 01/28/2022 16:24:59 [id number] Mariza lewis MD [facility] [place] [address] [facility] [place] [address] 07/16/2022 00:00:00 07/16/2022 12:20:28 [id number] Kanika Gonzalez MD [facility] [place] [address] [place] [address] 09/18/2022 11:44:28 09/18/2022 12:26:41 Body mass index 30+ - obesity 799158063 Z68.41 BMI 40 - patient currently on Golo but admitted to [facility] with her diet through the holiday season and low physical activity at this time. She is on metformin once daily and tolerating well- she has lost up to 9 pounds since this last visit. Patient currently eating up to 8271-8615 calories at most per day. Recommende d she adhere to at least 1200 calorie per day intake with multiple small 300-400 calorie meals (4-5 small meals per day) on sedentary days up to 1400 calories on days she is able to undergo moderate level activity at least 30-40 minutes with 20 minutes of that time at 70% of her target heart rate in order to reach total caloric output and assist in weight loss. She is motivated and willing to go to gym daily and discussed cutting out GMOs along with preservati ves and focusing on fruits, veggies, unprocesse d beans and nuts along with meats for the bulk of her diet. Spent up to 26 minutes preparing to see the patient (eg, review of tests), obtaining and/or reviewing separately obtained history, performing a medically appropriat e examinatio n and evaluation , counseling and educating the patient, ordering medication s, tests, along with documentin g clinical informatio n in the electronic health record, independen tly interpreti ng results and communicat ing results to the patient. RTC in 6 months. Patient was provided a handwritte n lab order which contains our fax number. If she chooses to go outside of the [facility] system to obtain labwork she was advised to provide our fax number and my informatio n to the lab she will be obtaining labwork from in order to have her labs properly forwarded over for me to review so there is no loss of follow up due to use of outside network. She was also advised to contact our clinic informing us that she has completed her labwork so we are aware we will need to reach out to the appropriat e laboratory to request her results be forwarded to us so I might have the ability to review and make further medical decision making in her case. She voiced understand ing. [id number] Mariza lewis MD [facility] [address] [place] [address] 01/14/2023 11:03:33 01/14/2023 12:03:49 Screening - NAD [id number] Z13.9 C-scope: s/p cologard 07/08/17, neg, get this ordered again 01/15/2022 Mammogram: 04/28/17: Neg 9: Neg 021: Birads 0, US L breastUS breast: 01/21/2021 : Next in 6 months, orderedMam mogram: 03/12/2022 : Neg DEXA: 09/18/2020 : Neg PAP: Did see Dr Fong, neg UTD flu shotUTD on PCV 13UTD on TdUTD on COVID 19 vaccine RTC in 4 monthswith labsER if worseshe did verbalize her understand ing of the above Asthma [id number] J45.90 9 On zyertec On ventolinDo es wellHas seen coconut boiler Dr Davalos in the past Hyperlipidemia 43231774 E78.5 On pravastati n 40mg daily, states that she was non complaint with her diet and her meds, does not want to change this at this time Get labsCheck li Leukopenia 74644422 D72. [address] Olivas, and was told that he was not concerned with this, declines any new referrals 07/08/2021 Get labs Liver enzy mes level above reference range 033541828 R74.01 OV 09/10/2020 :Get labsGet US liver, she does have the order for this from her prior OV OV 01/14/2021 :US liver: 09/18/2020 : Fatty liver, GB polypRepea t the US liverDid see Dr Reid as per her history and f/u in one year OV 07/08/2021 :Get an apt with Dr Reid OV 01/15/2022 :CMP: WNL for LFT 10/29/2021 OV 07/16/2022 :Get US liver and see liver OV 01/14/2023 : Get US liver and GI Essential hypertension 51143107 I10 Not on any meds and she has declined meds Get labsNo complaints at this time Vitamin D deficiency 347 74206 E55.9 Polyp of gallbladder [address] Srinivasan another referral OV 01/15/2022 :Dr Clancy 10/03/2021 , do US GB in 18 months OV 01/14/2023 : Get US Liver Pain of bi lateral knee joints 3898448389 80293 M25.561 M25.[address] Sadiq hess OV 01/15/2022 :Did see ortho, RTC PRN Dependent edema 06404508 4 R60.0 Used to be on lasix wants to get this to take this PRN, will take with K also Screening mammography 24 063740 Z12.31 [id number] Kanika Gonzalez MD [facility] [place] [address] [place] [address] 02/16/2023 11:37:47 02/16/2023 12:20:29 Impaired fasting glycemia 471808897 R73.01 a1c of 5%-glucose improved since on metformin- insulin levels in range as well. DST normal and leptin normal. Continue low dose metformin with dinner only. Recommende d she incorporat e natural insulin color worker s such as pears, apples, cinnamon, teddy and sweet potatoes to help mobilize her endogenous insulin. Recommende d up to 150 minutes of moderate level activity/e xercise weekly. Educated a bout weight management 560471354 Z71.3 Recommende d she adhere to at least 1200 calorie per day intake with multiple small 300-400 calorie meals (4-5 small meals per day) on sedentary days up to 1600 calories on days she is able to undergo moderate level activity at least 30-40 minutes with 20 minutes of that time at 70% of her target heart rate in order to reach total caloric output and assist in weight loss. She is motivated and willing to go to gym daily and discussed cutting out GMOs along with preservati ves and focusing on fruits, veggies, unprocesse d beans and nuts along with meats for the bulk of her diet. Continue on high protein/lo w carb diet and provided informatio n [facility] plan as this is focused on impaired glucose/me tabolic syndrome as her thyroid levels and cortisol levels are in range. Spent up to 25 minutes preparing to see the patient (eg, review of tests), obtaining and/or reviewing separately obtained history, performing a medically appropriat e examinatio n and evaluation , counseling and educating the patient, ordering medication s, tests, along with documentin g clinical informatio n in the electronic health record, independen tly interpreti ng results and communicat ing results to the patient. Patient can be followed by PCP - she/he is aware of my resignatio n and last day of March 13. If needed his/her PCP can refer patient to another endocrinol ogist in the area. All questions /concerns answered and refills necessary at visit today. [id number] Jose Luis vargas MD [facility] [address] [facility] [address] [place] [address] 07/07/2023 12:23:49 07/07/2023 16:19:13 Polyp of gallbladder 939166994 K82.4 [id number] Mariza lewis MD [facility] Internal Med [facility] [address] [facility] , [place] [address] 07/13/2023 10:56:54 07/13/2023 11:53:33 Screening - NAD [id number] Z13.9 C-scope: s/p cologard 07/08/17, neg, get this ordered again 01/15/2022 Mammogram: 04/28/17: Neg08/27/ 9: Neg 021: Birads 0, US L breastUS breast: 01/21/2021 : Next in 6 months, orderedMam mogram: 03/12/2022 : NegMammogr am: 07/01/2023 : Neg DEXA: 09/18/2020 : Neg PAP: Did see Dr Fong, neg UTD flu shotUTD on PCV 13UTD on TdUTD on COVID 19 vaccineCan do RSV vaccine RTC in 4 monthswith labsER if worseshe did verbalize her understand ing of the above Asthma 667888179 J45.90 9 On zyertec On ventolinDo es wellHas seen coconut boiler Dr Davalos in the past Hyperlipidemia 01073282 E78.5 On pravastati n 40mg daily, states that she was non complaint with her diet and her meds, does not want to change this at this time Get labs Leukopenia 67730794 D72. [address] Olivas, and was told that he was not concerned with this, declines any new referrals 07/08/2021 Get labs Liver enzy mes level above reference range 760916584 R74.01 OV 09/10/2020 :Get labsGet US liver, she does have the order for this from her prior OV OV 01/14/2021 :US liver: 09/18/2020 : Fatty liver, GB polypRepea t the US liverDid see Dr Reid as per her history and f/u in one year OV 07/08/2021 :Get an apt with Dr Reid OV 01/15/2022 :CMP: WNL for LFT 10/29/2021 OV 07/16/2022 :Get US liver and see liver OV 01/14/2023 : Get US liver and GI US Abd: 07/02/2023 : Hepatic steatosis Essential hypertension 28553020 I10 Not on any meds and she has declined meds Get labsNo complaints at this time Vitamin D deficiency 347 28736 E55.9 Polyp of gallbladder [address] 520289 K82[address] Srinivasan another referral OV 01/15/2022 :Dr Clancy 10/03/2021 , do US GB in 18 months OV 01/14/2023 : Get US Liver US liver: 07/02/2023 Dr Clancy 07/07/2023 , yearly US Pain of bi lateral knee joints 1186634735 12660 M25.561 M25.[address] Sadiq hess OV 01/15/2022 :Did see ortho, RTC PRN Dependent edema 04193299 4 R60.0 Used to be on lasix wants to get this to take this PRN, will take with K also Screening for osteoporosis 563095894 Z13.392 [id number] Alta Landa MD [facility] [address] [place] [address] 07/21/2023 15:32:43 07/21/2023 16:52:56 Chronic maxillary sinusitis 05026366 J32.0 Deviated nasal septum 12 5028162 J34.2 Hypertroph y of nasal turbinates 92197641 J34.3 [id number] Mariza lewis MD [facility] [address] [facility] [place] [address] 08/17/2023 10:55:20 08/17/2023 11:27:18 Screening - NAD 233526331 Z13.9 C-scope: s/p cologard 07/08/17, neg, get this ordered again 01/15/2022 Mammogram: 04/28/17: Neg 9: Neg 021: Birads 0, US L breastUS breast: 01/21/2021 : Next in 6 months, orderedMam mogram: 03/12/2022 : NegMammogr am: 07/01/2023 : Neg DEXA: 09/18/2020 : Neg PAP: Did see Dr Fong, neg UTD flu shotUTD on PCV 13UTD on TdUTD on COVID 19 vaccineCan do RSV vaccine RTC in 4 monthswith labsER if worseshe did verbalize her understand ing of the above Asthma 367229196 J45.90 9 On zyertec On ventolin, change to air supra, all side effects explainedD oes wellHas seen coconut boiler Dr Davalos in the past Hyperlipidemia 23302259 E78.5 On pravastati n 40mg daily, states that she was non complaint with her diet and her meds, does not want to change this at this time Get labs Leukopenia 84872299 D72. [address] Olivas, and was told that he was not concerned with this, declines any new referrals 07/08/2021 Get labs Liver enzy mes level above reference range 640339775 R74.01 OV 09/10/2020 :Get labsGet US liver, she does have the order for this from her prior OV OV 01/14/2021 :US liver: 09/18/2020 : Fatty liver, GB polypRepea t the US liverDid see Dr Reid as per her history and f/u in one year OV 07/08/2021 :Get an apt with Dr Reid OV 01/15/2022 :CMP: WNL for LFT 10/29/2021 OV 07/16/2022 :Get US liver and see liver OV 01/14/2023 : Get US liver and GI US Abd: 07/02/2023 : Hepatic steatosis Essential hypertension 07335692 I10 Not on any meds and she has declined meds Get labsNo complaints at this time Vitamin D deficiency 347 06893 E55.9 Polyp of gallbladder [address] Srinivasan another referral OV 01/15/2022 :Dr Clancy 10/03/2021 , do US GB in 18 months OV 01/14/2023 : Get US Liver US liver: 07/02/2023 Dr Clancy 07/07/2023 , yearly US Pain of bi lateral knee joints 5772000418 59226 M25.561 M25.[address] Babcock labs OV 01/15/2022 :Did see ortho, RTC PRN Dependent edema 02306386 4 R60.0 Used to be on lasix wants to get this to take this PRN, will take with K also Screening for osteoporosis 270632490 Z13.820 Cellulitis of lower limb 335667143 L03.119 S/p d/c CNE 08/08/2023 , does well nowNo more redness noted, no painUS LLE at CNE 08/06/2023 : negative [id number] Mariza lewis MD [facility] [address] [facility] [place] [address] 01/11/2024 11:35:59 01/11/2024 12:37:55 Screening - NAD 805881699 Z13.9 C-scope: s/p cologard 07/08/17, neg, get this ordered again 01/15/2022 Mammogram: 04/28/17: Neg 9: Neg 021: Birads 0, US L breastUS breast: 01/21/2021 : Next in 6 months, orderedMam mogram: 03/12/2022 : NegMammogr am: 07/01/2023 : Neg DEXA: 09/18/2020 : Neg PAP: Did see Dr Fong, neg UTD flu shotUTD on PCV 13UTD on TdUTD on COVID 19 vaccineCan do RSV vaccine RTC in 4 monthswith labsER if worseshe did verbalize her understand ing of the above Asthma 492579167 J45.90 9 On zyertec On ventolin, change to air supra, all side effects explainedD jerri Davis seen coconut boiler Dr Davalos in the past Hyperlipidemia 18392957 E78.5 On pravastati n 40mg daily, states that she was non complaint with her diet and her meds, does not want to change this at this time Get labs Today 01/11/2024 states that her TG 165 on 12/31/2023 and she did d/w Dr Chan and was told not to increase any meds but to cut back on her sugars Leukopenia 32722558 D72. [address] Olivas, and was told that he was not concerned with this, declines any new referrals 07/08/2021 Get labs Liver enzy mes level above reference range 938885036 R74.01 OV 09/10/2020 :Get labsGet US liver, she does have the order for this from her prior OV OV 01/14/2021 :US liver: 09/18/2020 : Fatty liver, GB polypRepea t the US liverDid see Dr Reid as per her history and f/u in one year OV 07/08/2021 :Get an apt with Dr Reid OV 01/15/2022 :CMP: WNL for LFT 10/29/2021 OV 07/16/2022 :Get US liver and see liver OV 01/14/2023 : Get US liver and GI OV 01/11/2024 :Get a referral to GIUS Abd: 07/02/2023 : Hepatic steatosis Essential hypertension 22950057 I10 Not on any meds and she has declined meds Get labsNo complaints at this time Vitamin D deficiency 347 43494 E55.9 Polyp of gallbladder [address] 402757 [address] Mcmullent another referral OV 01/15/2022 :Dr Clancy 10/03/2021 , do US GB in 18 months OV 01/14/2023 : Get US Liver US liver: 07/02/2023 Dr Clancy 07/07/2023 , yearly US Pain of bi lateral knee joints 3696245419 19921 M25.561 M25.[address] Babcock labs OV 01/15/2022 :Did see ortho, RTC PRN Dependent edema 58978710 4 R60.0 Used to be on lasix wants to get this to take this PRN, will take with K also Screening for osteoporosis 978343947 Z13.820 Cellulitis of lower limb 252110504 L03.119 S/p d/c CNE 08/08/2023 , does well nowNo more redness noted, no painUS LLE at CNE 08/06/2023 : negative Screening mammography 24 137436 Z12.31 [id number] Mariza lewis MD [facility] [address] [place] [address] 07/25/2024 11:41:17 07/25/2024 13:57:16 Screening - NAD 211536972 Z13.9 C-scope: s/p cologard 07/08/17, neg, get this ordered again 01/15/2022 Mammogram: 04/28/17: Neg 9: Neg 021: Birads 0, US L breastUS breast: 01/21/2021 : Next in 6 months, orderedMam mogram: 03/12/2022 : NegMammogr am: 07/01/2023 : NegMammogr am: 06/13/2024 : Neg DEXA: 09/18/2020 : NegDEXA: 01/18/2024 : Osteopenia , do more calcium and vit d PAP: Did see Dr Fong, grabiel UTD flu shotUTD on PCV 13UTD on TdUTD on COVID 19 vaccineCan do RSV vaccine RTC in 4 monthswith labsER if worseshe did verbalize her understand ing of the above Asthma 481817051 J45.90 9 On zyertecOn ventolin, change to air supra, all side effects explained Does valerieHas seen coconut boiler Dr Davalos in the past Hyperlipidemia 19218299 E78.5 On pravastati n 40mg daily, states that she was non complaint with her diet and her meds, does not want to change this at this time Get labs Leukopenia 73256799 D72. [address] Olivas, and was told that he was not concerned with this, declines any new referrals 07/08/2021 Get labs Liver enzy mes level above reference range 589173501 R74.01 OV 09/10/2020 :Get labsGet US liver, she does have the order for this from her prior OV OV 01/14/2021 :US liver: 09/18/2020 : Fatty liver, GB polypRepea t the US liverDid see Dr Reid as per her history and f/u in one year OV 07/08/2021 :Get an apt with Dr Reid OV 01/15/2022 :CMP: WNL for LFT 10/29/2021 OV 07/16/2022 :Get US liver and see liver OV 01/14/2023 : Get US liver and GI OV 01/11/2024 :Get a referral to GIUS Abd: 07/02/2023 : Hepatic steatosis OV 07/25/2024 :Does wellSees Dr Reid, and will do the US liver at that time Essential hypertension 04064985 I10 Not on any meds and she has declined meds Get labsNo complaints at this time Vitamin D deficiency 347 49121 E55.9 Polyp of gallbladder 197 195721 K82.[address] Srinivasan another referral OV 01/15/2022 :Dr Clancy 10/03/2021 , do US GB in 18 months OV 01/14/2023 : Get US Liver US liver: 07/02/2023 Dr Clancy 07/07/2023 , yearly USWants to wait till 12/2024 to do the US Pain of bi lateral knee joints 6935230098 81514 M25.561 M25.[address] Sadiq hess OV 01/15/2022 :Did see ortho, RTC PRN Dependent edema 10613690 4 R60.0 Used to be on lasix wants to get this to take this PRN, will take with K also Cellulitis of lower limb 947995820 L03.119 S/p d/c CNE 08/08/2023 , does well nowNo more redness noted, no painUS LLE at CNE 08/06/2023 : negativeNo w sees a lymphedema specialist in [facility] to [facility] thru Dr Chan [facility] Leukocytosis 696250597 D 72.829 Health Concerns Section Related Observation LastModified by Organization Detai ls LastModified Time None Recorded Concern Status LastModified by Organization Details LastModified Time None Recorded Advance Directives Directive N: Payers Insurance Date Sequence Insurance Name Policy Number Policy Holliday Covered Member ID Holliday Member ID Guarantor Name 01/11/2024 [facility] Maria Eugenia Garcia SELF SELF Maria Eugenia Garcia 07/22/2024 1 [place] [id number] Maria Eugenia Garcia [id number] Maria Eugenia Garcia Notes Date Note Type Note Provider Name and Address Organization Details Recorded Time 07/13/2023 text/html Here to torie Almaguer Hx:NoneReviewed social, family and surgical historyShe is here as she has noted a lump on the L cheek, she states that she has this 'hard' lump on the L side, since last Thursday, feels that it is getting bigger and feels that the face is swelling upThis am it was a little tender, and tingling, is eating well, no fevers or chills, just felt warm at the faceNo N/V no abd pain, no blood in urine or stoolNormal appetite, and normal hydrationOV 04/30/17:Doing well today, did do the labsOV 07/30/17:Here for her routine aptFeels that she is doing wellShe did do the labs on 07/27/17 and is here to review theseOV 11/03/17:Here for her 3 month aptShe states that she did see Dr Miner for her GB issuesFeels that she is doing well at this timeshe did do the labs on 10/29/17 and is here to review theseOV 03/02/18:Here for her routine aptShe states that she is doing well otherwiseDid do the labs on 02/25/18 and is here to review these OV 05/04/18:Here for her routine aptShe did do the labs on 04/29/18 and is here to review theseOV 08/31/18:Here for her routine aptFeels wellDid do the labs on 08/27/18OV 01/04/19:Here for her routine aptShe feels 'great'Did do the labs, she also been to Dr Griffin the dermatologistOV 07/05/2019:Here for her routine aptShe feels Abiola did do the labs and is here to review these OV 01/02/2020:Here for her routine aptShe feels wellShe did do the labs OV 05/14/2020:Here for her routine aptShe is doing well at this timeShe did do the labs on 05/08/2020OV 09/10/2020:Here for her routine aptShe is doing well, she did do the labsShe has not yet done the mammogram or DEXA as she was taking care of her sick step brotherShe did get the COVID 19 vaccineOV 01/14/2021:Here for her routine aptShe is c/o L knee pain from sitting downShe did do the labs on 01/11/2021OV 07/08/2021:Here for her routine aptShe is doing wellShe did do the labs on 2OV 09/25/2021:ACV:C/o essie LE swelling, with fluid leaking out of itNo pain, no traumaShe also feels that she has a swelling on the L side of the abdomen, no N/V or diarrhea, just had a RUQ US, normal [id number]/15/2022:Her e for her routine apt, she is here with her husbandShe did do the labs on 2OV 07/17/2022:Here for her f/u apt, does well, did do the labs, here with her OV 01/14/2023: Here for her f/u apt with the , feels well today OV 07/13/2023: Here for her routine apt with her , feels well today Mariza Soares MD [address] [place] [address], [address], [place], [address], [facility] [place] 07/13/2023 11:56:47 07/21/2023 text/html Many years histo ry of allergic rhinitis, and sinusitis. A CT revealed maxillary sinusitis, septal deviation and turbinate hypertrophy. Alta Landa MD [address] [place] [address], [facility] [address], [place], [address], [place] [facility] [place] 07/21/2023 16:43:15 08/17/2023 text/html Here to torie Almaguer Hx:NoneReviewed social, family and surgical historyShe is here as she has noted a lump on the L cheek, she states that she has this 'hard' lump on the L side, since last Thursday, feels that it is getting bigger and feels that the face is swelling upThis am it was a little tender, and tingling, is eating well, no fevers or chills, just felt warm at the faceNo N/V no abd pain, no blood in urine or stoolNormal appetite, and normal hydrationOV 04/30/17:Doing well today, did do the labsOV 07/30/17:Here for her routine aptFeels that she is doing wellShe did do the labs on 07/27/17 and is here to review theseOV 11/03/17:Here for her 3 month aptShe states that she did see Dr Miner for her GB issuesFeels that she is doing well at this timeshe did do the labs on 10/29/17 and is here to review theseOV 03/02/18:Here for her routine aptShe states that she is doing well otherwiseDid do the labs on 02/25/18 and is here to review these OV 05/04/18:Here for her routine aptShe did do the labs on 04/29/18 and is here to review theseOV 08/31/18:Here for her routine aptFeels wellDid do the labs on 08/27/18OV 01/04/19:Here for her routine aptShe feels 'great'Did do the labs, she also been to Dr Griffin the dermatologistOV 07/05/2019:Here for her routine aptShe feels Abiola did do the labs and is here to review these OV 01/02/2020:Here for her routine aptShe feels wellShe did do the labs OV 05/14/2020:Here for her routine aptShe is doing well at this timeShe did do the labs on 05/08/2020OV 09/10/2020:Here for her routine aptShe is doing well, she did do the labsShe has not yet done the mammogram or DEXA as she was taking care of her sick step brotherShe did get the COVID 19 vaccineOV 01/14/2021:Here for her routine aptShe is c/o L knee pain from sitting downShe did do the labs on 01/11/2021OV 07/08/2021:Here for her routine aptShe is doing wellShe did do the labs on 07/02/2021V 09/25/2021:ACV:C/o essie LE swelling, with fluid leaking out of itNo pain, no traumaShe also feels that she has a swelling on the L side of the abdomen, no N/V or diarrhea, just had a RUQ US, normal lnfmktd4701/15/2022:Her e for her routine apt, she is here with her husbandShe did do the labs on 2OV 07/17/2022:Here for her f/u apt, does well, did do the labs, here with her OV 01/14/2023: Here for her f/u apt with the , feels well today OV 07/13/2023: Here for her routine apt with her , feels well today OV 08/17/2023: Here for her f/u apt, she is doing well Mariza Soares MD [address], [facility] [address], [place], [address], [place] [facility] 08/28/2023 13:49:09 01/11/2024 text/html Here to torie Almaguer Hx:NoneReviewed social, family and surgical historyShe is here as she has noted a lump on the L cheek, she states that she has this 'hard' lump on the L side, since last Thursday, feels that it is getting bigger and feels that the face is swelling upThis am it was a little tender, and tingling, is eating well, no fevers or chills, just felt warm at the faceNo N/V no abd pain, no blood in urine or stoolNormal appetite, and normal hydrationOV 04/30/17:Doing well today, did do the labsOV 07/30/17:Here for her routine aptFeels that she is doing wellShe did do the labs on 07/27/17 and is here to review theseOV 11/03/17:Here for her 3 month aptShe states that she did see Dr Miner for her GB issuesFeels that she is doing well at this timeshe did do the labs on 10/29/17 and is here to review theseOV 03/02/18:Here for her routine aptShe states that she is doing well otherwiseDid do the labs on 02/25/18 and is here to review these OV 05/04/18:Here for her routine aptShe did do the labs on 04/29/18 and is here to review theseOV 08/31/18:Here for her routine aptFeels wellDid do the labs on 08/27/18OV 01/04/19:Here for her routine aptShe feels 'great'Did do the labs, she also been to Dr Griffin the dermatologistOV 07/05/2019:Here for her routine aptShe feels wellShe did do the labs and is here to review these OV 01/02/2020:Here for her routine aptShe feels wellShe did do the labs OV 05/14/2020:Here for her routine aptShe is doing well at this timeShe did do the labs on 05/08/2020OV 09/10/2020:Here for her routine aptShe is doing well, she did do the labsShe has not yet done the mammogram or DEXA as she was taking care of her sick step brotherShe did get the COVID 19 vaccineOV 01/14/2021:Here for her routine aptShe is c/o L knee pain from sitting downShe did do the labs on 01/11/2021OV 07/08/2021:Here for her routine aptShe is doing wellShe did do the labs on 2OV 09/25/2021:ACV:C/o essie LE swelling, with fluid leaking out of itNo pain, no traumaShe also feels that she has a swelling on the L side of the abdomen, no N/V or diarrhea, just had a RUQ US, normal dxunbfj6401/15/2022:Her e for her routine apt, she is here with her husbandShe did do the labs on 2OV 07/17/2022:Here for her f/u apt, does well, did do the labs, here with her OV 01/14/2023: Here for her f/u apt with the , feels well today OV 07/13/2023: Here for her routine apt with her , feels well today OV 08/17/2023: Here for her f/u apt, she is doing well OV 01/11/2024: Here for her f/u apt, she feels well today, she is here with her , she did do the labs with Dr Chan but not reported by Pranav Soares MD [address] [place] [address], [facility] [address], [place], [address], [place] [facility] ClasesD 01/11/2024 12:39:07 07/25/2024 text/html Here to torie Almaguer Hx:NoneReviewed social, family and surgical historyShe is here as she has noted a lump on the L cheek, she states that she has this 'hard' lump on the L side, since last Thursday, feels that it is getting bigger and feels that the face is swelling upThis am it was a little tender, and tingling, is eating well, no fevers or chills, just felt warm at the faceNo N/V no abd pain, no blood in urine or stoolNormal appetite, and normal hydrationOV 04/30/17:Doing well today, did do the labsOV 07/30/17:Here for her routine aptFeels that she is doing wellShe did do the labs on 07/27/17 and is here to review theseOV 11/03/17:Here for her 3 month aptShe states that she did see Dr Miner for her GB issuesFeels that she is doing well at this timeshe did do the labs on 10/29/17 and is here to review theseOV 03/02/18:Here for her routine aptShe states that she is doing well otherwiseDid do the labs on 02/25/18 and is here to review these OV 05/04/18:Here for her routine aptShe did do the labs on 04/29/18 and is here to review theseOV 08/31/18:Here for her routine aptFeels wellDid do the labs on 08/27/18OV 01/04/19:Here for her routine aptShe feels 'great'Did do the labs, she also been to Dr Griffin the dermatologistOV 07/05/2019:Here for her routine aptShe feels Nakulhe did do the labs and is here to review these OV 01/02/2020:Here for her routine aptShe feels wellShe did do the labs OV 05/14/2020:Here for her routine aptShe is doing well at this timeShe did do the labs on 05/08/2020OV 09/10/2020:Here for her routine aptShe is doing well, she did do the labsShe has not yet done the mammogram or DEXA as she was taking care of her sick step brotherShe did get the COVID 19 vaccineOV 01/14/2021:Here for her routine aptShe is c/o L knee pain from sitting downShe did do the labs on 01/11/2021OV 07/08/2021:Here for her routine aptShe is doing wellShe did do the labs on 2OV 09/25/2021:ACV:C/o essie LE swelling, with fluid leaking out of itNo pain, no traumaShe also feels that she has a swelling on the L side of the abdomen, no N/V or diarrhea, just had a RUQ US, normal [id number]/15/2022:Her e for her routine apt, she is here with her husbandShe did do the labs on 2OV 07/17/2022:Here for her f/u apt, does well, did do the labs, here with her OV 01/14/2023: Here for her f/u apt with the , feels well today OV 07/13/2023: Here for her routine apt with her , feels well today OV 08/17/2023: Here for her f/u apt, she is doing well OV 01/11/2024: Here for her f/u apt, she feels well today, she is here with her , she did do the labs with Dr Chan but not reported by [facility] OV 07/25/2024: Here for her f/u apt, she is doing very well, she is here with her Mariza Soares MD [address] [place] [address], [address], [place], [id number], [place] [facility] 07/25/2024 16:44:16 OBGyn Episode No OBEpisode recorded.
--- OUTSIDE RECORDS SUMMARY | 2024-12-08 15:29 | XMS_ITS | Encounter Summary ---
Author Organization [facility] Address [address] [place] [address] Care Team Providers Care Barrel Waterer Name Role Phone Marques Soares MD Primary Care Provider Reason for Visit * Radiology Services (Routine) - Closed Specialty Diagnoses / Procedures Referred By Contact Referred To Contact Hepatology / Gastroenterology Diagnoses Fatty liver Procedures PROC FIBROSCAN Supriya Reid MD [address] [facility], [address] [place] [address] Phone: tel:[phone] fax:[phone] [facility] [address] [place] [id number] Phone: tel: fax: Referral ID Status Reason Start Date Expiration Date Visits Re quested Visits Authorized [id number] Closed 11/16/2024 11/16/2025 1 1 Encounter Details Date Type Department Care Team (Late st Contact Info) Description 12/07/2024 10:00 AM CDT Procedure visit [facility] [address] [place] [phone] Unknown, Provider Social History Tobacco Use Types Packs/Day Years Used Date Smoking Tobacco: Never Smokeless Tobacco: Never Comments Unknown Sex and Gender Information Value Date Recorded Sex Assigned at Not on file Legal Sex Female 3:51 PM CDT Gender Identity Not on file Sexual Orientation Not on file documented as of this encounter Plan of Treatment Not on file documented as of this encounter Visit Diagnoses Not on filedocumented in this encounter Care Teams Barrel Waterer Relationship Specialty Start Date End Date Marques Soares MD [address] [id number] PCP - General Internal Medicine 12/07/24 documented as of this encounter
--- OUTSIDE RECORDS SUMMARY | 2024-12-08 15:29 | XMS_ITS | Data Portability ---
Author Organization [facility] Address [address] [place] [address] Assessment No assessment recorded. Plan of Treatment Reminders Order Date Submit Date Provider Last Modified By Organization Details Last Modified Time Details Appointments None recorded. Lab pap, IG + HPV, cervical - please use Z11.51 in addition to code above for HPV testing. 2017 018 JUANCHO [facility], [address] Vasquez, [address], [address], 8 14:13:50 urinalysi s, dipstick 2017 018 [email or web address] In-Office Order, Internal Use Only DO Not Attach Compendium DO Not Attach Compendium, Do Not Delete/merge, [id number] 8 17:55:04 test, urine 2015 016 [email or web address] In-Office Order, Internal Use Only DO Not Attach Compendium DO Not Attach Compendium, Do Not Delete/merge, [id number] 6 12:01:09 urinalysi s, dipstick 2015 016 [email or web address] In-Office Order, Internal Use Only DO Not Attach Compendium DO Not Attach Compendium, Do Not Delete/merge, [id number] 6 12:01:09 pap, IG + HPV, cervical 2015 016 JUANCHO [facility], [address] [facility], [address], [place], [address], 6 20:12:27 Referral internal medicine referral 2015 016 [email or web address] Bryant MD, [address] [facility], [facility], [place], [address], 6 12:01:10 Procedures None recorded. Surgeries None recorded. Imaging MAMMO, screening , bilateral 2017 018 [email or web address] Not available 8 09:06:18 mammogram , screening 2015 016 JUANCHO Not available 6 15:03:45 Medication Orders Premarin 0.625 mg/gram vaginal cream 2017 [facility]18 [id number] [address] [facility], [place], [place], [id number], 8 17:55:09 multivita min tablet 2017 018 [email or web address] Not available 8 11:24:05 Calcium with Vitamin D 600 mg-10 mcg (400 unit) tablet 2017 018 [email or web address] Not available 8 11:24:05 Patient TargetsNo targets recorded. Patient Instructions Encounter Date Encounter Id Patient Instructions Last Modified By Organization Details Last Modified Time 09/04/2015 [id number] learning about breast cancer screening [email or web address] Not available 09/04/2015 12:01:09 02/17/2018 [id number] atrophic vaginitis: care instructions [email or web address] Not available 02/17/2018 17:55:04 mammogram: about this test [email or web address] Not available 02/18/2018 11:24:05 mammogram screening patient instructions [email or web address] Not available 02/18/2018 11:24:05 Reason for Referral Internal Medicine Referral f or Hypertension screening Referring Physician: Rafa Fong, [facility], Encounter Date: 09/04/2015 Results Created Date Observation Date Name Description Value Unit Range Abnormal Flag Note LastModifiedBy Organization Detail LastModifiedTime 02/18/20 18 02/17/2018 urina lysis , dipst ick Leukocytes Negati ve Not Available In-Office Order Internal Use Only DO Not Attach Compendium DO Not Attach Compendium, Do Not Delete/merge, [facility] 02/17/2018 17:02:45 02/18/20 18 02/17/2018 urina lysis , dipst ick Nitrite negati ve Not Available In-Office Order Internal Use Only DO Not Attach Compendium DO Not Attach Compendium, Do Not Delete/merge, [facility] 02/17/2018 17:02:45 02/18/20 18 02/17/2018 urina lysis , dipst ick Urobilinogen .2 Not Available In-Of fice Order Internal Use Only DO Not Attach Compendium DO Not Attach Compendium, Do Not Delete/merge, [facility] 02/17/2018 17:02:45 02/18/20 18 02/17/2018 urina lysis , dipst ick Protein Negati ve Not Available In-Office Order Internal Use Only DO Not Attach Compendium DO Not Attach Compendium, Do Not Delete/merge, [facility] 02/17/2018 17:02:45 02/18/20 18 02/17/2018 urina lysis , dipst ick pH 5.5 Not Available In-Office Order Internal Use Only DO Not Attach Compendium DO Not Attach Compendium, Do Not Delete/merge, [facility] 02/17/2018 17:02:45 02/18/20 18 02/17/2018 urina lysis , dipst ick Blood Negati ve Not Available In-Office Order Internal Use Only DO Not Attach Compendium DO Not Attach Compendium, Do Not Delete/merge, [facility] 02/17/2018 17:02:45 02/18/20 18 02/17/2018 urina lysis , dipst ick Specific [place] 1.030 Not Available In-Off ice Order Internal Use Only DO Not Attach Compendium DO Not Attach Compendium, Do Not Delete/merge, [facility] 02/17/2018 17:02:45 02/18/20 18 02/17/2018 urina lysis , dipst ick Ketone Negati ve Not Available In-Office Order Internal Use Only DO Not Attach Compendium DO Not Attach Compendium, Do Not Delete/merge, [facility] 02/17/2018 17:02:45 02/18/20 18 02/17/2018 urina lysis , dipst ick Bilirubin Negati ve Not Available In-Office Order Internal Use Only DO Not Attach Compendium DO Not Attach Compendium, Do Not Delete/merge, [id number] 02/17/2018 17:02:45 02/18/20 18 02/17/2018 urina lysis , dipst ick Glucose Negati ve Not Available In-Office Order Internal Use Only DO Not Attach Compendium DO Not Attach Compendium, Do Not Delete/merge, [id number] 02/17/2018 17:02:45 09/04/19 16 09/04/2015 urina lysis , dipst ick Leukocytes Negati ve Not Available In-Office Order Internal Use Only DO Not Attach Compendium DO Not Attach Compendium, Do Not Delete/merge, [facility] 09/04/2015 11:06:04 09/04/19 16 09/04/2015 urina lysis , dipst ick Nitrite negati ve Not Available In-Office Order Internal Use Only DO Not Attach Compendium DO Not Attach Compendium, Do Not Delete/merge, [facility] 09/04/2015 11:06:04 09/04/19 16 09/04/2015 urina lysis , dipst ick Urobilinogen .2 Not Available In-Of fice Order Internal Use Only DO Not Attach Compendium DO Not Attach Compendium, Do Not Delete/merge, [facility] 09/04/2015 11:06:04 09/04/19 16 09/04/2015 urina lysis , dipst ick Protein Trace Not Available In-Office Order Internal Use Only DO Not Attach Compendium DO Not Attach Compendium, Do Not Delete/merge, [facility] 09/04/2015 11:06:04 09/04/19 16 09/04/2015 urina lysis , dipst ick pH 7.5 Not Available In-Office Order Internal Use Only DO Not Attach Compendium DO Not Attach Compendium, Do Not Delete/merge, [facility] 09/04/2015 11:06:04 09/04/19 16 09/04/2015 urina lysis , dipst ick Blood Negati ve Not Available In-Office Order Internal Use Only DO Not Attach Compendium DO Not Attach Compendium, Do Not Delete/merge, [facility] 09/04/2015 11:06:04 09/04/19 16 09/04/2015 urina lysis , dipst ick Specific [place] 1.030 Not Available In-Off ice Order Internal Use Only DO Not Attach Compendium DO Not Attach Compendium, Do Not Delete/merge, [id number] 09/04/2015 11:06:04 09/04/19 16 09/04/2015 urina lysis , dipst ick Ketone Negati ve Not Available In-Office Order Internal Use Only DO Not Attach Compendium DO Not Attach Compendium, Do Not Delete/merge, [id number] 09/04/2015 11:06:04 09/04/19 16 09/04/2015 urina lysis , dipst ick Bilirubin Negati ve Not Available In-Office Order Internal Use Only DO Not Attach Compendium DO Not Attach Compendium, Do Not Delete/merge, [id number] 09/04/2015 11:06:04 09/04/19 16 09/04/2015 urina lysis , dipst ick Glucose Negati ve Not Available In-Office Order Internal Use Only DO Not Attach Compendium DO Not Attach Compendium, Do Not Delete/merge, [facility] 09/04/2015 11:06:04 09/04/19 16 09/04/2015 pregn tracy test, urine HCG negati ve Not Available In-Office Order Internal Use Only DO Not Attach Compendium DO Not Attach Compendium, Do Not Delete/merge, [id number] 09/04/2015 11:06:04 09/04/19 16 09/06/2015 pap, IG + HPV, cervi jackelyn HPV aptima NEGATI VE negati ve THIS TEST DETEC TS FOURT EEN HIGH- RISK HPV TYPES (16/1 8/31/ 33/35 /39/4 5/ 51/52 /56/5 8/59/ 66/68 ) WITHO UT DIFFE RENTI ATION . 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 REACT CORBIN CELLU LAR JACOBS ES AND/O R REPAI R ARE PRESE NT. Not Available [facility] ([facility]) [address] [facility], [place], [address], 09/07/2015 20:12:27 09/04/19 16 09/07/2015 pap, IG + HPV, cervi jackelyn specimen adequacy: BRAYAN Beckman SATIS FACTO RY FOR EVALU ATION . ENDOC ERVIC AL AND/O R SQUAM OUS METAP LASTI C CELLS (ENDO CERVI JACKELYN COMPO NENT) ARE PRESE NT. Not Available [facility] ([facility]) [address] [facility], [place], [address], 09/07/2015 20:12:27 09/04/19 16 09/07/2015 pap, IG + HPV, cervi jackelyn clinician provided ICD10: BRAYAN Beckman Z01.4 19 Not Available [facility] ([facility]) [address] [facility], [place], [address], 09/07/2015 20:12:27 09/04/19 16 09/07/2015 pap, IG + HPV, cervi jackelyn performed by: BRAYAN HENAO EY, CYTOT ECHNO LOGIS T (ASCP ) Not Available [facility] ([facility]) [address] [facility], [place], [address], 09/07/2015 20:12:27 09/04/19 16 09/07/2015 pap, IG + HPV, cervi jackelyn electronical ly signed by: BRAYAN TINSLEY MD, PATHO LOGIS T Not Available [facility] ([facility]) [address] [facility], [place], [address], 09/07/2015 20:12:27 09/04/19 16 09/07/2015 pap, IG + HPV, cervi jackelyn . . Not Available [facility] ([facility]) [address] [facility], [place], [address], 09/07/2015 20:12:27 09/04/19 16 09/07/2015 pap, IG + HPV, cervi jackelyn note: COMMEN T THE PAP SMEAR IS A SCREE ANTONELLA TEST DESIG WHITNEY TO AID IN THE DETEC TION OF CHERYL LIGNA NT AND MALIG NANT CONDI TIONS OF THE UTERI NE CERVI X. IT IS NOT A DIAGN OSTIC PROCE DURE AND SHOUL D NOT BE USED THE SOLE MEANS OF DETEC TING CERVI JACKELYN CANCE R. BOTH FALSE -POSI TIVE AND FALSE -NEGA TIVE REPOR TS DO OCCUR . Not Available [facility] ([facility]) [address] [place], [address], 09/07/2015 20:12:27 09/04/19 16 09/07/2015 pap, IG + HPV, cervi jackelyn test methodology: COMMEN T THIS LIQUI D BASED THINP REP(R ) PAP TEST WAS SCREE WHITNEY WITH THE USE OF AN IMAGE GUIDE Kaitlyn Narvaez. Not Available [facility] ([facility]) [address] [place], [address], 09/07/2015 20:12:27 02/18/20 18 02/22/2018 pap, IG + HPV, cervi jackelyn HPV aptima Negati ve negati ve This test detec ts fourt een high- risk HPV types (16/1 8/31/ 33/35 /39/4 5/ 51/52 /56/5 8/59/ 66/68 ) witho ut diffe renti ation . Not Available [facility] ([facility]) [address] [place], [address], 02/24/2018 14:13:50 02/18/20 18 02/24/2018 pap, IG + HPV, cervi jackelyn diagnosis: Commen t abnormal EPITH ELIAL CELL ABNOR MALIT Y. ATYPI JACKELYN SQUAM OUS CELLS OF UNDET ERMIN ED SIGNI FICAN CE. Not Available [facility] ([facility]) [address] [place], [address], 02/24/2018 14:13:50 02/18/20 18 02/24/2018 pap, IG + HPV, cervi jackelyn specimen adequacy: Brayan beckman Satis facto ry for evalu ation . Endoc ervic al and/o r squam ous metap lasti c cells (endo cervi jackelyn compo nent) are prese nt. Not Available [facility] ([facility]) [address] [facility], [place], [address], 02/24/2018 14:13:50 02/18/20 18 02/24/2018 pap, IG + HPV, cervi jackelyn clinician provided ICD10: Brayan beckman Z01.4 19 Z11.5 1 Not Available [facility] ([facility]) [address] [facility], [place], [address], 02/24/2018 14:13:50 02/18/20 18 02/24/2018 pap, IG + HPV, cervi jackelyn performed by: Brayan Loyd ns, Cytot echno logis t (ASCP ) Not Available [facility] ([facility]) [address] [facility], [place], [address], 02/24/2018 14:13:50 02/18/20 18 02/24/2018 pap, IG + HPV, cervi jackelyn electronical ly signed by: Brayan ledesma MD, Patho logis t Not Available [facility] ([facility]) [address] [place], [address], 02/24/2018 14:13:50 02/18/20 18 02/24/2018 pap, IG + HPV, cervi jackelyn . . Not Available [facility] ([facility]) [address] [place], [address], 02/24/2018 14:13:50 02/18/20 18 02/24/2018 pap, IG + HPV, cervi jackelyn pathologist provided ICD10: Brayan beckman R87.6 10 Not Available [facility] ([facility]) [address] [place], [address], 02/24/2018 14:13:50 02/18/20 18 02/24/2018 pap, IG + HPV, cervi jackelyn note: Commen t The Pap smear is a scree antonella test desig whitney to aid in the detec tion of cheryl ligna nt and malig nant condi tions of the uteri ne cervi x. It is not a diagn ostic proce dure and shoul d not be used as the sole means of detec ting cervi jackelyn cance r. Both false -posi tive and false -nega tive repor ts do occur . Not Available [facility] ([facility]) [address] [facility], [place], [address], 02/24/2018 14:13:50 02/18/20 18 02/24/2018 pap, IG + HPV, cervi jackelyn test methodology: Commen t This liqui d based ThinP rep(R ) pap test was scree whitney with the use of an image guide kaitlyn parker Not Available [facility] ([facility]) [address] [facility], [place], [address], 02/24/2018 14:13:50 10/11/19 16 10/05/2015 mammo gram, scree antonella No observ ation record ed. [email or web address] Not Available 02/17 18:12:06 02/18/20 18 04/28/2017 MAMMO , scree antonella, digit al, bilat eral No observ ation record ed. [facility] (Radiology) [address] [place], [address], 02/24/2018 09:57:58 08/28/19 19 08/27/2018 MAMMO , scree antonella, bilat eral No observ ation record ed. [email or web address] (Imaging) [address] [place], [address], 09/03/2018 15:51:39 Result Notes None recorded. Problems No Known Problems Procedures Surgical History Date Name Laterality Status Provider Name and Address Organization Details Recorded Time 8 Date of Last Pap Smear completed Oliva [place], [place] - [facility] 02/17/2018 17:01:49 LEEP completed Monica Huerta [place] - [facility] 09/04/2015 11:06:03 Colposcopy completed Monica Huerta [place] - [facility] 09/04/2015 11:06:03 Imaging Results None recorded. Procedure Notes None recorded. Medical Equipment None Reported. Allergies Allergen ID Allergen Name Allergen Category Reaction Reaction Severity Criticality Documentation Date Start Date Code Code System Note Provider Name and Address Organization Details Recorded Time 81523 cat dander environme nt itching moderate Not available 09/04/2015 [address] T[place], [place] - [facility] 10:49:48 06869 epoxy resin environme nt itching moderate Not available 09/04/2015 [address] TAYLER Portillo, [facility] SI 6 10:49:48 Medications Name Sig Start Date Stop Date Status Note LastModified by Organization Details LastModified Time multivitami n tablet Take 1 tablet every day by oral route. 2017 active Not Available Not Available Not Avai lable Zyrtec-D 5 mg-120 mg tablet,exte nded release active Not Available Not Available Not Available azithromyci n 250 mg tablet active Not Available Not Available Not Available pravastatin 40 mg tablet active Not Available Not Available Not Available benzonatate 100 mg capsule active Not Available Not Available Not Available erythromyci n 5 mg/gram (0.5 %) eye ointment APPLY 1 CM TO AFFECTED EYE EVERY 4 HOURS active Not Available Not Available No t Available oseltamivir 75 mg capsule active Not Available Not Available Not Available cefuroxime axetil 500 mg tablet active Not Available Not Available No t Available methylpredn isolone 4 mg tablets in a dose pack active Not Available Not Available Not Available Vitamin D2 1,250 mcg (50,000 unit) capsule active Not Available Not Available Not Available amoxicillin 875 mg-potassiu m clavulanate 125 mg tablet 02/17 completed Not Available Not Available Not Available Ventolin HFA 90 mcg/actuati on aerosol inhaler active Not Available Not Available Not Available Premarin 0.625 mg/gram vaginal cream INSERT 1GM VAGINALLY 3 TIMES WEEKLY 2020 active Not Available Not Available Not Avai lable nitrofurant oin monohydrate /macrocryst als 100 mg capsule TAKE 1 CAPSULE BY MOUTH EVERY 12 HOURS FOR 5 DAYS active Not Available Not Available No t Available clobetasol- emollient 0.05 % topical foam active Not Available Not Available Not Available Calcium with Vitamin D 600 mg-10 mcg (400 unit) tablet Take 1 tablet twice a day by oral route. 2017 active Not Available Not Available Not Avai lable Fluvirin 7431-3162 45 mcg (15 mcg x 3)/0.5 mL intramuscul ar suspension active Not Available Not Available N ot Available Fluvirin 2964-1422 45 mcg (15 mcg x 3)/0.5 mL intramuscul ar suspension active Not Available Not Available N ot Available Vitals Date Recorded Body height Body mass index (BMI) Body weight Systolic And Diastolic Provider Name and Address Organization Details Last Updated DateTime 09/04/2015 165.1 cm 39.4 kg/m2 779698.39 169 g 138/90 mm[Hg] Monica Huerta MA [facility] 09/04/2015 11:08:05 Date Recorded Body weight Systolic And Diastolic Provider Name and Address Organization Details Last Updated DateTime 02/17/2018 496675.35 g 134/72 mm[Hg] Oliva Montgomery MA [facility] 02/17/2018 17:11:50 Social History Question Answer Notes LastModified by Organizat ion Details LastModified Time Tobacco Smoking Status Never Smoker Monica Huerta MA null, [facility] 09/04/2015 10:53:43 Do You Have An Advance Directive? No Information not available 09/04/2015 Is Blood Transfusion Acceptable In An Emergency? Yes Information not available 09/04/2015 What Is Your Level Of Caffeine Consumption? Moderate Information not available 09/04/2015 How Much Tobacco Do You Chew? None Information not available 09/04/2015 What Type Of Diet Are You Following? REGULAR Information not available 09/04/2015 Which Illicit Or Recreational Drugs Have You Used? None Information not available 09/04/2015 Education 2 Year College Information not available 09/04/2015 Live Alone Or With Others? With Others Information not available 09/04/2015 What Was The Date Of Your Most Recent Tobacco Screening? 02/17/2018 Information not available 12/23/2018 How Many Children Do You Have? 0 Information not available 09/04/2015 Performs Monthly Self-breast Exam? Yes Information no t available 09/04/2015 Do You Use Protection During Sex? No Information not available 09/04/2015 What Is Your Relationship Status? Information not available 09/04/2015 Seat Belts Used Routinely Yes Information not available 09/04/2015 Are You Sexually Active? Yes Information not available 09/04/2015 How Much Tobacco Do You Smoke? No [email or web address] Information not available 02/17/2018 General Stress Level Low Information not available 09/04/2015 Do You Use Sunscreen Routinely? Yes Information not available 09/04/2015 How Many Years Have You Smoked Tobacco? 0 [email or web address] Information not available 02/17/2018 Sex: Unknown Functional Status Question Answer Note LastModified by Organizat ion Details LastModified Time What is your level of alcohol consumption? Occasional Information not available 09/04/2015 Are you currently employed? Yes Information not available 09/04/2015 What is your occupation? self employed Information not available 09/04/2015 What is your exercise level? None Information not available 09/04/2015 Mental Status None recorded. Family History Relationship Description Onset Age of this Age Resolved Age Notes LastModified by Organization Details LastModified Time Mother Hypercholest erolemia Not available 2015 10:53:43 Mother Hypertensive disorder Not available 2015 10:53:43 Father Chronic obstructive pulmonary disease Not available 2015 10:53:43 Father Diabetes mellitus Not available 2015 10:53:43 Brother Hypercholest erolemia Not available 2015 10:53:43 Brother Hypertensive disorder Not available 2015 10:53:43 Medical History Condition Response Other Y High Blood Pressure N Breast Cancer N Thyroid Problems N Kidney or Bladder Problems N GI Problems N Depression N Blood Clots N Lung Disease N Acne N Eating Disorder N Breast Problem N Anemia N Anesthesia Complications N Headaches/Migraines N Anxiety Disorder N Diabetes N Ovarian Cancer N Muscle, Joint, or Bone Problems N Blood Transfusions N Seizures/Epilepsy N Polyps N Infertility N Acid Reflux (GERD) N Cancer N Abuse/Domestic Violence N Asthma Y Endometriosis N High Cholesterol N Hepatitis N Liver Disease N Heart Disease N Pre-Eclampsia N Osteoporosis N Gynecological History Statement/Question Response Abnormal Pap Y On BCP's at Conception? N STIs/STDs Y HPV Vaccine N Age at Menarche 11 Current Control Method Menopause If Post Menopausal, Age at Menopause 46 Sexually Active? Y Menses Monthly N Date of Last Pap Smear 02/17/2018 Sexual Problems? N LMP Unknown Desired Control Method Unknown Obstetrics History GPAL:G 1 P 0 0 1 0 Type Value Spontaneous 1 Total 1 Past Encounters Encounter ID Performer Location Encounter Start Date Encounter Closed Date Diagnosis/Indication Diagnosis SNOMED-CT Code Diagnosis ICD10 Code Diagnosis Note [id number] [facility] [address] [place] [phone] 09/04/2015 10:23:20 09/04/2015 11:46:15 Gynecologic examination 41853809 Z01.419 Screening for malignant neoplasm of breast 336764220 Z12.31 Hypertensi on screening 819179514 Z13.6 HTN both readings [id number] [facility] [address] [place] [address] [phone] 02/17/2018 16:11:25 02/18/2018 16:40:50 Gynecologic examination 73454614 Z01.419 Z11.51 PT refused depression screening today 02/17/2018 mds Screening mammography 24 338256 Z12.31 Atrophic vaginitis 91080 000 N95.2 Health Concerns Section Related Observation LastModified by Organization Detai ls LastModified Time None Recorded Concern Status LastModified by Organization Details LastModified Time None Recorded Advance Directives Directive N: Payers Insurance Date Sequence Insurance Name Policy Number Policy Holliday Covered Member ID Holliday Member ID Guarantor Name 02/08/2021 1 [facility] [id number] Maria Eugenia Garcia [id number] Maria Eugenia Garcia Notes Date Note Type Note Provider Name and Address Organization Details Recorded Time 09/04/2015 text/html Annual GYNReport ed bypatient.History:n o gynecologic complaints; no change in interval history Menstrual cycle:Normal menses Urinary symptoms:No hematuria; No incontinence Vulva:No genital lesion Vagina:Normal vaginal discharge Breast:No breast pain; No breast lump; No nipple discharge Current Contraception:Satis fied with current contraception Sexual complaints:No sexual complaints; No pain during intercourse; Normal libido Menopausal Symptoms:No menopausal symptoms; Normal vaginal lubrication Psychological symptoms:No depression; No anxiety; No PMDD Preventive measures:Encourage self breast examination; Encourage regular exercise; Encourage no tobacco use; Encourage regular mammograms starting age 40; Followed with Q3 year pap smear and high risk HPV typing; Needs to schedule mammogram; Needs to schedule colonoscopy SOFÍA Willard 09/04/2015 18:40:38 02/17/2018 text/html Annual Plastics Nurse Post-MenopausalRepo rted bypatient.Menopausa l Symptoms:no menopausal symptoms;inadequacy of lubrication of vaginal mucosa Vaginal Bleeding:history of menopause having occurred; no history of post menopausal bleeding Urinary Symptoms:no hematuria; no incontinence; no nocturia; no urinary frequency Vulva:no genital lesion;atrophic vulva Vagina:normal vaginal discharge;atrophic vagina Breast:no breast lump; no nipple discharge; no breast pain Sexual Complaints:no sexual complaints Psychological Symptoms:no depression; no anxiety Preventive Measures:encourage regular mammograms starting age 40; encourage self breast examination; encourage regular exercise; encourage no tobacco use; mammogram performed within the past year; needs to schedule mammogram 52 y/o F presenting for annual exam, last mammogram 04/2018, last pap 2015. C/o vaginal dryness. SOFÍA Willard 02/17/2018 18:17:29 OBGyn Episode No OBEpisode recorded.
--- OUTSIDE RECORDS SUMMARY | 2024-12-08 15:29 | XMS_ITS | Patient Health Record ---
Author Organization [employer] [facility] Address [address] [address] Care Team Providers Care Animal Nurse Name Role Phone Kanika Gonzalez Primary Care Provider [phone] Sindi Ann Unavailable [phone] Migration, Provider Unavailable Unavailable Results Component Value Reference Range Notes COMPREHENSIVE METABOLIC PANE L (Not yet reviewed by provider) Interpretation: Performing Lab:[facility], [facility], [address] [place], [address] Liliya Montilla MD Notes/Report: FASTING:YES FASTING: YES GLUCOSE 84 65-99 mg/dL Fasting reference interval UREA NITROGEN (BUN) 14 7-25 mg/dL CREATININE 0.57 0.50-1.05 mg/dL EGFR 103 > OR = 60 mL/min/1.73m2 BUN/CREATININE RATIO SEE NOTE: 6-22 (calc) Not Reported: BUN and Creatinine are within reference range. SODIUM 140 135-146 mmol/L POTASSIUM 4.1 3.5-5.3 mmol/L CHLORIDE 104 98-110 mmol/L CARBON DIOXIDE 26 20-32 mmol/L CALCIUM 9.0 8.6-10.4 mg/dL PROTEIN, TOTAL 6.4 6.1-8.1 g/dL ALBUMIN 4.0 3.6-5.1 g/dL GLOBULIN 2.4 1.9-3.7 g/dL (calc) ALBUMIN/GLOBULIN RATIO 1.7 1.0-2.5 (calc) BILIRUBIN, TOTAL 0.4 0.2-1.2 mg/dL ALKALINE PHOSPHATASE 109 37-153 U/L AST 21 10-35 U/L ALT 22 6-29 U/L T3, FREE (Not yet reviewed b y provider) Interpretation: Performing Lab:[facility], [address] [place], [address] Liliya Montilla MD Notes/Report: FASTING:YES FASTING: YES T3, FREE 3.9 2.3-4.2 pg/mL HEMOGLOBIN A1c (Not yet revi ewed by provider) Interpretation: Performing [facility]: [facility], [address], [place], [address] Liliya Montilla Notes/Report: FASTING:YES FASTING: YES HEMOGLOBIN A1c 5.4 <5.7 % of total Hgb For the purpose of screening for the presence of diabetes: <5.7% Consistent with the absence of diabetes 5.7-6.4% Consistent with increased risk for diabetes (prediabetes) > or =6.5% Consistent with diabetes This assay result is consistent with a decreased risk of diabetes. Currently, no consensus exists regarding use of hemoglobin A1c for diagnosis of diabetes in children. According to [place] Diabetes [employer] (ADA) guidelines, hemoglobin A1c <7.0% represents optimal control in non- diabetic patients. Different metrics may apply to specific patient populations. Standards of Medical Care in Diabetes(ADA). Your request to have a duplicate copy faxed has been acknowledged. Queued to: [id number] Queued to: [id number] INSULIN (Not yet reviewed by provider) Interpretation: Performing Lab:[facility], [address], [place], [address] Liliya Montilla MD Notes/Report: FASTING:YES FASTING: YES INSULIN 12.0 Reference Range < or = 18.4 Risk: Optimal < or = 18.4 Moderate NA High >18.4 Adult cardiovascular event risk category cut points (optimal, moderate, high) are based on Insulin Reference Interval studies performed at [facility] in 2021. CBC (INCLUDES DIFF/PLT) (Not yet reviewed by provider) Interpretation: Performing Lab:[facility], [address], [place], [address] Liliya Montilla MD Notes/Report: FASTING:YES FASTING: YES WHITE BLOOD CELL COUNT 3.0 3.8-10.8 Thousand/ uL RED BLOOD CELL COUNT 3.99 3.80-5.10 Million/uL HEMOGLOBIN 12.8 11.7-15.5 g/dL HEMATOCRIT 38.0 35.0-45.0 % MCV 95.2 80.0-100.0 fL MCH 32.1 27.0-33.0 pg MCHC 33.7 32.0-36.0 g/dL For adults, a slight decrease in the calculated MCHC value (in the range of 30 to 32 g/dL) is most likely not clinically significant; however, it should be interpreted with caution in correlation with other red cell parameters and the patient's clinical condition. RDW 13.1 11.0-15.0 % PLATELET COUNT 291 140-400 Thousand/uL MPV 9.4 7.5-12.5 fL ABSOLUTE NEUTROPHILS 1020 6964-4581 cells/uL ABSOLUTE LYMPHOCYTES 7459 073-0655 cells/uL ABSOLUTE MONOCYTES 300 200-950 cells/uL ABSOLUTE EOSINOPHILS 180 15-500 cells/uL ABSOLUTE BASOPHILS 9 0-200 cells/uL NEUTROPHILS 34 LYMPHOCYTES 49.7 MONOCYTES 10.0 EOSINOPHILS 6.0 BASOPHILS 0.3 VITAMIN B12/FOLATE, SERUM PA SAVITA (Not yet reviewed by provider) Interpretation: Performing Lab:[facility], [address], [place], [address] Liliya Montilla MD Notes/Report: FASTING:YES FASTING: YES VITAMIN B12 >2000 200-1100 pg/mL FOLATE, SERUM 8.2 Reference Range Low: <3.4 Borderline: 3.4-5.4 Normal: >5.4 IRON AND TOTAL IRON BINDING CAPACITY (Not yet reviewed by provider) Interpretation: Performing Lab:[facility], [address] [place], [address] Liliya Montilla MD Notes/Report: FASTING:YES FASTING: YES IRON, TOTAL 50 45-160 mcg/dL IRON BINDING CAPACITY 179 250-450 mcg/dL (jackelyn c) % SATURATION 28 16-45 % (calc) LIPID PANEL (Not yet reviewe d by provider) Interpretation: Performing Lab:[facility], [address], [place], [address] Liliya Montilla MD Notes/Report: FASTING:YES FASTING: YES CHOLESTEROL, TOTAL 165 <200 mg/dL HDL CHOLESTEROL 52 > OR = 50 mg/dL TRIGLYCERIDES 83 <150 mg/dL LDL-CHOLESTEROL 96 Reference range: <100 Desirable range <100 mg/dL for primary prevention; <70 mg/dL for patients with CHD or diabetic patients with > or = 2 CHD risk factors. LDL-C is now calculated using the Sasha calculation, which is a validated novel method providing better accuracy than the Friedewald equation in the estimation of LDL-C. David SS et al. SANDRA. 2013;310(66): 3709-2146 (http://[employer].Market Factory/faq/LNG130) CHOL/HDLC RATIO 3.2 <5.0 (calc) NON HDL CHOLESTEROL 113 <130 mg/dL (calc) For patients with diabetes plus 1 major ASCVD risk factor, treating to a non-HDL-C goal of <100 mg/dL (LDL-C of <70 mg/dL) is considered a therapeutic option. T4, FREE (Not yet reviewed b y provider) Interpretation: Performing Lab:[facility], [address] [place], [address] Liliya Montilla MD Notes/Report: FASTING:YES FASTING: YES T4, FREE 1.3 0.8-1.8 ng/dL TSH (Not yet reviewed by pro vider) Interpretation: Performing Lab:[facility], [address] [place], [address] Liliya Montilla MD Notes/Report: FASTING:YES FASTING: YES TSH 2.24 0.40-4.50 mIU/L Reason For Referral No Information Medications Medication SIG (Take, Route, Frequency, Duration) Notes Start Date End Date Status Vitamin E 50 MG/ML 1 ML ORALLY ONCE A DAY *Please review and pick correct strength-formulatio n from [employer]mean options. If intended option is not shown, discontinue and re-order from Quick Search* Active Pravastatin Sodium 40 MG 1 tab(s) orally once a day for 30 days 02/08/2024 Active Vitamin B-12 1000 MCG 1 tab(s) orally once a day Active metFORMIN HCl ER 500 MG TAKE 1 TABLET BY MOUTH EVERY DAY AT DINNER for 90 Days Active Problems Problem Type SNOMED Code ICD Code Onset Dates Problem Status W/U Status Risk Notes Problem Vitamin D deficiency (35209185) Vitamin D deficiency, unspecified (E55.9) Active confirmed Problem Obesity (794083520) Obesity, unspecified (E66.9) Active confirmed Problem Peripheral venous insufficiency (12013532) Venous insufficiency (chronic) (peripheral) (I87.2) Active confirmed Vital Signs Heart Rate 70 /min 02/08/2024 Blood pressure diastolic 92 mm Hg 02/08/2024 Height 65 in 02/08/2024 Blood pressure systolic 157 mm Hg 02/08/2024 Weight 229.8 lbs 02/08/2024 BMI 38.24 kg/m2 02/08/2024 Encounters Encounter Location Date Provider Diagnosis [facility] - Kanika Gonzalez [address] [place] [address] 08/08/[address] [address] 04/16/2024 Provider Migration [facility]- Dr. Camejo [address] [place] [address] 02/08/2024 Sindi Ann Obesity, unspecified E66.9 ; Venous insufficiency (chronic) (peripheral) I87.2 ; Abnormal weight gain R63.5 ; Other fatigue R53.83 and Vitamin D deficiency, unspecified E55.9 Assessments Encounter Date Diagnosis (ICD Code) Assessment Notes Treatment Notes Treatment Clinical Notes Section Notes 02/08/2024 Obesity, unspecified (ICD-10 - E66.9) -Screen with Labs. Continue with current tx regimen of metformin 500mg XR at this time. -Continue with CW program and hitting protein goal. She has enough protein powder at this time. -Borderline subclinical hypothyroidism at previous visits. -We discussed tirzepatide program, pt declines at this time. Pt concerned w/ side effect profile. -We discussed her diet regarding high protein, low starchy carbs. [facility]: CBC, CMP, HgbA1c, Insulin, Iron/IBC, Lipid Panel, Free T3, Free T4, TSH, B12 02/08/2024 Venous insufficiency (chronic) (peripheral) (ICD-10 - I87.2) -Continue to follow w/ specialist. Pt wearing compression brace at this time. 02/08/2024 Abnormal weight gain (ICD-10 - R63.5) 02/08/2024 Other fatigue (ICD-10 - R53.83) 02/08/2024 Vitamin D deficiency, unspecified (ICD-10 - E55.9) 02/08/2024 Other Case discussed with YOUNG Flores. Agree with plan. Kanika Gonzalez MD Plan Of Treatment Pending Test Test Name Order Date COMPREHENSIVE METABOLIC PANEL 07/18/2024 T3, FREE 07/18/2024 HEMOGLOBIN A1c 07/18/2024 INSULIN 07/18/2024 CBC (INCLUDES DIFF/PLT) 07/18/2024 VITAMIN B12/FOLATE, SERUM PANEL 07/18/19 25 IRON AND TOTAL IRON BINDING CAPACITY LIPID PANEL 07/18/2024 T4, FREE 07/18/2024 TSH 07/18/2024 Insurance Providers Payer Name Payer Address Payer Phone Subscriber Number Group Number Insured Name Patient Relationship to Insured Coverage Start Date Coverage End Date [facility] [address] [place] [address] [id number] GENET MAHMOOD Self - patient is the insured Medical (General) History Medical History History ICD Code Slight High Cholesterol Venous insufficiency Hospitalization History Reason Date(Month/Year) 10/2023- Cellulitis 09/2023- Cellulitis 07/2023- Cellulitis
--- OUTSIDE RECORDS SUMMARY | 2024-12-08 15:29 | XMS_ITS | Clinical Summary ---
Author Organization [facility] Candis Negrete Address [address] [address] Care Team Providers Care Permanent Waver Name Role Phone Unavailable Primary Care Provider Unavailabl e Allergies No known active allergies Medications pravastatin (PRAVACHOL) 40 mg tablet Take 40 mg by mouth daily. 10/07/2024 Active metFORMIN (GLUCOPHAGE XR) 500 mg Extended Release 24 hour tablet TAKE 1 TABLET BY MOUTH EVERY DAY AT DINNER Active cyanocobalamin 1,000 mcg Tablet Take 1,000 mcg by mouth daily. Active Cholecalciferol, Vitamin D3, 50 mcg (2,000 unit) Capsule Take 2,000 Units by mouth daily. Active vitamin E, dl,tocopheryl acet, (vitamin E, DL,acetate,) 180 mg (400 unit) Capsule Take 400 Units by mouth daily. Active zinc SULFATE 50 mg zinc (220 mg) capsule Take 220 mg by mouth daily. Active cetirizine-pseud oephedrine sr 12 hour (ZyrTEC-D) 5-120 mg tablet Take 1 Tablet by mouth. Active albuterol sulfate HFA 90 mcg/actuation aerosol inhaler INHALE 2 PUFFS INTO LUNGS EVERY 4 HOURS NEEDED Active triamcinolone acetonide (Nasacort) 55 mcg nasal spray Take by nasal route. 07/25/2024 Active Active Problems No known active problems Encounters Date Type Department Care Team Description 12/08/2024 3:00 PM CDT Office Visit [facility] Oncology and Hematology - [place] [address] [place] [address] Juan Manuel Cordova MD Chronic anemia (Primary Dx); Leukopenia, unspecified type from Last 3 Months Family History Medical History Relation Name Comments Diabetes Brother 1 Skin Cancer Brother 1 No Known Problems Brother 2 Cancer - Other Brother 3 Amyloidosis No Known Problems Brother 4 No Known Problems Father No Known Problems Mother Relation Name Status Comments Brother 1 Alive Brother 2 Alive Brother 3 Alive Brother 4 Alive Father Mother Social History Tobacco Use Types Packs/Day Years [...] Mass Index 40.04 12/08/2024 2:52 PM CDT Plan of Treatment Upcoming Encounters Date Type Department Care Team (Late st Contact Info) Description 12/22/2024 4:30 PM CDT Telephone Check Up [facility] Oncology and Hematology - [place] [address] [facility] [address] [place] [address] Juan Manuel Cordova MD [address] [place] [address] Health Maintenance Due Date Last Done Comments DTAP/TDAP/TD VACCINES (1 - Tdap) 1982 HPV/Cotest (21-29) 1984 CERVICAL CANCER SCREENING 1993 HPV/Cotest (30-65) 1993 PAP SMEAR 1993 BREAST CANCER SCREENING 2003 COLORECTAL SCREENING 2008 Colorectal Cancer Screening 2008 FIT-DNA Q 3 years 2008 FIT/FOBT Q 1 year 2008 Flex Sig/CT Colonography Q 5 years 2008 ZOSTER VACCINE (1 of 2) 2013 Preventative Visit- Commercial 06/01/2024 INFLUENZA VACCINE (#1) 2024 , 03/27/2020, 03/30/2019, Additional history exists RSV VACCINE (60+ or ) (1 - 1-dose 75+ series) 2038 Insurance [employer] BLUE ACCESS/TRUE BLUE PPO
--- NOTE | 2024-12-08 15:45 | CY_PTH ---
PATIENT: Maria Eugenia Garcia LOC: ANHLAB #:[id number] AGE/SX: 59/F ROOM: RE12/08/[address]: Juan Manuel Cordova MD : 1965 BED: DIS: 12/08/2024 SPEC #: [id number] RECD: 12/09/24 07:14 STATUS: SARATH REQ #: [id number] KATE: 12/08/24 15:[address]: Juan Manuel Cordova DEPT: [facility] Cytology RECD BY: Haritha Trammell ENTERED: 12/09/24 07:15 SP TYPE: Cytology OT DR: Miguel Bryant, Tissues: A - Peripheral Blood Procedures: Flow Cytometry
[2024-12-08 15:52] LABS: Hematocrit 39.6 % (37.0-47.0); Hemoglobin 13.6 g/dL (12.0-15.0); Immature Granulocyte Percent A 0.2 % (0-0.5); Lymphocytes Absolute Auto 1.60 K/mm3 (0.9-3.2); Mean Corpuscular HGB Conc 34.3 g/dl (32-36); Mean Corpuscular Hemoglobin 32.4 pg (26-34); Mean Corpuscular Volume 94.3 fl (80-100); Nucleated Red Blood Cells Absolute Auto 0.000 K/mm3 (0.0-0.012); Nucleated Red Blood Cells Perc 0.0 % (0.0-0.2); Platelet Count Result 288 k/mm3 (150-375); Red Blood Count 4.20 M/mm3 (4.2-5.4); White Blood Count 4.3 K/mm3 (4.5-10.0)
[2024-12-08 16:45] LABS: Iron 78 ug/dL (37-170)
[2024-12-08 16:54] LABS: Percent Iron Saturation 42 % (20-50)
[2024-12-08 17:12] LABS: Alanine Aminotransferase 63 U/L (6-35); Albumin Level 4.5 g/dL (3.5-5.1); Alkaline Phosphatase 106 U/L (38-126); Anion Gap 8 mmol/L (4-12); Aspartate Amino Transferase 60 U/L (14-36); Bilirubin,Total 0.5 mg/dL (0.2-1.3); Blood Urea Nitrogen 17 mg/dL (7-17); Calcium 9.5 mg/dL (8.4-10.2); Carbon Dioxide 27 mmol/L (22-30); Chloride 107 mmol/L (98-107); Estimated Glomerular Filt Rate 59; Glucose 95 mg/dL (65-110); Potassium 4.0 mmol/L (3.4-5.0); Sodium 142 mmol/L (137-145); Total Protein 7.7 g/dL (6.3-8.2)
[2024-12-08 19:10] LABS: Vitamin B12 > 1000.0 pg/mL (239-931)
[2024-12-09 18:08] LABS: ANA by IFA Rfx Titer/Pattern Negative (.)
== END 2024-12-08 15:25 | disposition home or self-care (01) ==
PROVIDERS: PCP Internal Medicine; Visit Provider Internal Medicine Hematology & Oncology
DX: D72.819 Decreased white blood cell count, unspecified (principal); D64.9 Anemia, unspecified
CPT/HCPCS: 36415; 80053; 82607; 82746; 83540; 83550; 84238; 85025; 86038; 88184